=== PATIENT | female | born 1955 | race Caucasian/White ===

== ENCOUNTER 2024-08-01 08:40 | Emergency (ER) | payer MEDICARE, SELFPAY ==
[2024-08-01] VITALS (7 sets, daily range): BP systolic 96–124; BP diastolic 74–84; PULSE 91–134; RESP 14–26; TEMP 36.6–36.7; O2SAT 98–100
--- NOTE | ~2024-08-01 | CT_ITS ---
EXAMINATION: CT chest abdomen pelvis w con DATE: 08/01/2024 10:45 INDICATION: Abnormal chest x-ray with nausea, vomiting and weakness TECHNIQUE: Computed tomography (CT) of the chest, abdomen, and pelvis was performed with 100 mL Omnip aque-350 intravenous contrast. Automated exposure control and iterative reconstruction technique were employed. The dose-length product was 410.53 mGy-cm. COMPARISON: Chest radiograph dated 08/01/2024 FINDINGS: CHEST CT: Mild emphysema. There are few scattered small bilateral calcified pulmonary nodules along with calcif ied mediastinal and bilateral hilar lymph nodes consistent with old granulomatous disease. The larger nodular opacities identified on the prior radiographs correspond to cardiac monitoring leads. No jamil picious noncalcified pulmonary nodules identified. No pneumonia, pulmonary edema, pleural effusion or pneumothorax. Heart size is normal. No pericardial effusion. Mediastinal wires changes likely bullock ry artery bypass grafting. Thoracic aorta is normal in caliber with no dissection. No pathologically enlarged abdominal or pelvic lymphadenopathy. Multinodular goiter with nodules measuring up to 1.1 cm . Moderate thoracic spondylosis. ABDOMEN/PELVIS CT: 2.4 cm hemangioma with characteristic peripheral discontiguous puddling of contrast located in the po sterior dome of the right hepatic lobe. There are clefts along the anterior spleen with smooth curve margins and without associated hematoma. Other developmental or sequela of old trauma or infarct. Ibarra creas and bilateral adrenal glands are normal. Scattered cortical scarring in both kidneys. Moderate amount stool scattered throughout the colon. No dilated bowel to suggest obstruction. The appendix is not visualized. No pericecal inflammatory change to suggest acute appendicitis. Bladder, retroverted uterus and bilateral adnexa are unremarkable. No free intraperitoneal gas or fluid. No pathologicall y enlarged abdominal or pelvic lymphadenopathy. Mild lumbar spondylosis. IMPRESSION: 1. A few small scattered calcified pulmonary nodules along with calcified mediastinal and hilar lymph nodes consistent with old granulomatous disease. No suspicious pulmonary nodule identified. Subtle n odular opacities identified on prior chest radiograph. Related to cardiac monitoring leads. 2. Multinodular goiter. 3. Regions of cortical scarring at both kidneys consistent with sequela of chronic infection or infar ction. Reviewed, dictated and finalized at location A. ETIC ADVISOR IMPRESSION: 1. A few small scattered calcified pulmonary nodules along with calcified media stinal and hilar lymph nodes consistent with old granulomatous disease. No susp icious pulmonary nodule identified. Subtle nodular opacities identified on prio r chest radiograph. Related to cardiac monitoring leads. 2. Multinodular goiter. 3. Regions of cortical scarring at both kidneys consistent with sequela of chronic condition nurse curry infection or infarction.
--- NOTE | ~2024-08-01 | XR_ITS ---
EXAMINATION: XR chest 2V DATE: 08/01/2024 10:10 INDICATION: Nausea and vomiting. Lightheadedness. TECHNIQUE: Frontal and lateral views of the chest were obtained. COMPARISON: None. FINDINGS: There are nodules in the lungs measuring up to 10 mm. No pleural effusion or pneumothorax. The heart size is normal. Median sternotomy wires are noted. IMPRESSION: 1. Pulmonary nodules measuring up to 10 mm suspicious for infection or malignancy. Noncontrast chest CT is recommended. Reviewed, dictated and finalized at location A. 'S ELECTRONIC WARFARE OFFICER IMPRESSION: 1. Pulmonary nodules measuring up to 10 mm suspicious for infection or malignan cy. Noncontrast chest CT is recommended.
--- NOTE | 2024-08-01 09:03 | ECG_ITS ---
Test Date: 2024-08-01 09:11:36 Measurements Intervals [place] Rate: 134 P: 0 MT: 0 QRS: 58 QRSD: 85 T: -60 QT: 319 QTc: 478 Interpretive Statements ATRIAL FIBRILLATION WITH RAPID VENTRICULAR RESPONSE POSSIBLE RIGHT VENTRICULAR CONDUCTION DELAY BORDERLINE ST-T WAVE ABNORMALITY- DIFFUSE LEADS BASELINE ARTIFACT- I, II, III, AVR, AVL ABNORMAL ECG No previous ECG available for comparison Electronically Signed On 08-01-2024 09:37:50 CRACKING UNIT OPERATOR by Ruddy Ponce D.O.
--- NOTE | 2024-08-01 09:13 | ED.WEAKNESS ---
HPI - Weakness General Chief complaint: Weakness Stated complaint: vomiting, lethargic Time Seen by Provider: 08/01/24 09:00 Source: patient and family Mode of arrival: ambulatory Limitations: no limitations History of Present Illness HPI Narrative: Patient is a 69 y/o female who presents to the ED with c/o N/V, lightheadedness. Patient reports she woke up around 1am feeling unwell. Began having N/V. Report of multiple episodes of vomiting. Then became very diaphoretic and lightheaded. Was then brought here by her daughter. Patient does feel slightly lightheaded currently. Denies current nausea. Denies abdominal pain. Denies known sick contacts or bad food exposure. Denies fevers. Denies diarrhea or constipation. Did have a normal bowel movement this morning. Patient was found to be in AFib with RVR upon arrival. 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 Daughter reports history of AFib after surgery. Daughter states patient was on amiodarone at that time. Med list from 2019 shows flecainide. Patient reportedly has not been taking any of her normal medications since 2019 when COVID began. Has not seen her primary or wood cut engraver since then. She is not currently anticoagulated, was previously on xarelto. Patient denies chest pain or shortness of breath. Related Data Allergies Allergy/AdvReac Type Severity Reaction Status Date / Time No Known Allergies Allergy Verified 08/01/24 08:41 Review of Systems Review of Systems: All systems reviewed & are unremarkable except as noted in HPI. All systems reviewed & are unremarkable except as noted in HPI and below [facility] Past Medical History Medical History Paroxysmal A-fib Cardiac myxoma removal [address] [facility] HLD (hyperlipidemia) HTN (hypertension) Exam Narrative: GENERAL: Well appearing, thin, non-toxic, in no acute distress. HEAD: Normocephalic, atraumatic. RESPIRATORY: Airway patent, respirations nonlabored. Clear to auscultation bilaterally, no rales, rhonchi, wheezing. CARDIOVASCULAR: Tachycardic with irregular rhythm without murmurs, rubs, or gallops. Peripheral pulses intact. ABDOMINAL: Soft, no tenderness throughout abdomen, nondistended. Normoactive BS. MUSCULOSKELETAL: Moves all extremities. No gross deformities. No peripheral edema. SKIN: Warm, dry, normal color. NEURO: A&O X3. Speech clear. No ataxic movements. PSYCHIATRIC: Appropriate mood and affect. Normal interaction. Course Vital Signs Vital signs: Vital Signs Temperature 98.1 F 08/01/24 08:44 Pulse Rate 91 08/01/24 08:44 Respiratory Rate 14 08/01/24 08:44 Blood Pressure 96/74 L 08/01/24 08:44 Pulse Oximetry 98 08/01/24 08:44 Oxygen Delivery Room Air 08/01/24 08:44 Temperature 97.9 F 08/01/24 12:39 Pulse Rate 100 08/01/24 13:55 Respiratory Rate 19 08/01/24 13:55 Blood Pressure 124/84 08/01/24 13:55 Pulse Oximetry 99 08/01/24 13:55 Oxygen Delivery Room Air 08/01/24 08:44 MDM - Weakness MDM Narrative Medical decision making narrative: Patient presented to nausea, vomiting, lightheadedness. Patient borderline hypotensive upon arrival. Also found to be in AFib with RVR. EKG confirming this. Reports remote history of AFib and 2011 after cardiac surgery. Is not currently on any medications and has not been for the last 4 years. Will initiate fluids to see how heart rate and blood pressure responds. EKG without concerning ST changes. Patient denies chest pain or shortness breath. Cbc w/ WBC count of 12.0. Likely reactive from vomiting. CMP is unremarkable. Stable electrolytes. Stable kidney function. Lactic acid within normal range at 1.2. Magnesium within normal range. Viral swabs negative. UA w/o signs of infection. Troponin is undetectable. BNP is moderately elevated to 3780, though patient does not appear fluid overloaded. No peripheral edema on exam. Chest x-ray with multiple pulmonary nodules, infection versus malignancy. No pulmonary edema. Recommended CT chest. CT chest/abdomen/pelvis was obtained and without acute findings. Pulmonary nodules present, but no suspicious nodules. Old finding related to kidneys. Urine today does not appear infectious. Patient given 2L fluid in the ED. HR improved down to the low 100s, BP 120s systolic. Has not required any rate controlling agents. 3 hr troponin also undetectable. Overall w/u fairly reassuring. Feel patient is safe for d/c home. Will need to be restarted on medications for AFIB. Discussed case with Taina Toribio NP Cardiology, agrees with plan, feel reasonable to resume low dose metoprolol and be restarted on anticoagulation. Patient to f/u with her wood cut engraver in her home town. Discussed this with patient and daughter. They are in agreement with plan. Will give patient dose of metoprolol now. Rx sent to pharmacy for metoprolol 12.5mg bid, xarelto. HR improved into the 80s-90s after metoprolol. Safe for d/c home. Given strict return precautions. D/C in stable condition. Medical Records Attestation: I reviewed the patient's medical records. Lab Data Attestation: I reviewed the patient's lab results. 08/01/24 09:19 08/01/24 09:19 Labs: Lab Results 08/01/24 08/01/24 08/01/24 Range/Units 09:19 09:47 12:14 WBC 12.0 H (4.5-10.0) K/mm3 RBC 5.05 (4.2-5.4) M/mm3 Hgb 14.9 (12.0-15.0) g/dL Hct 45.8 (37.0-47.0) % MCV 90.7 (80-100) fl MCH 29.5 (26-34) pg MCHC 32.5 (32-36) g/dl RDW 14.7 H (11.5-14.5) % Plt Count 282 (150-375) k/mm3 MPV 11.9 H (7.4-10.4) fl Immature Gran % (Auto) 0.2 (0-0.5) % Neut % (Auto) 91.1 H (45.5-73.1) % Lymph % (Auto) 4.8 L (18.3-44.2) % [place] % (Auto) 3.5 (2.6-8.5) % Eos % (Auto) 0.2 (0-4.4) % Baso % (Auto) 0.2 (0.2-1.2) % Lymph # (Auto) 0.58 L (0.9-3.2) K/mm3 [place] # (Auto) 0.4 (0.1-0.6) K/mm3 Eos # (Auto) 0.0 (0-0.3) K/mm3 Baso # (Auto) 0.0 (0.0-0.1) K/mm3 Abs Immat Gran (auto) 0.03 (0.00-0.031) K/mm3 Absolute Neuts (auto) 10.9 H (1.3-6.7) K/mm3 Absolute Nucleated RBC 0.000 (0.0-0.012) K/mm3 Total Counted 100 Neutrophils % (Manual) 92 H (46-73) % Lymphocytes % (Manual) 5 L (18-44) % Monocytes % (Manual) 3 (3-9) % Nucleated RBC % 0.0 (0.0-0.2) % Abs Lymphs (Manual) 0.60 L (1.1-4.5) K/mm3 Abs Monocytes (Manual) 0.36 (0.1-0.90) K/mm3 Platelet Estimate Adequate (Adequate) Anisocytosis 1+ Schistocytes None seen PT 14.6 (11.1-14.7) Seconds INR 1.1 APTT 24.0 (22.3-36.8) Seconds Sodium 136 L (137-145) mmol/L Potassium 3.4 (3.4-5.0) mmol/L Chloride 98 (98-107) mmol/L Carbon Dioxide 26 (22-30) mmol/L Anion Gap 12 (4-12) mmol/L BUN 16 (7-17) mg/dL Creatinine 0.96 (0.7-1.0) mg/dL Estim Creat Clear Calc 44 ml/min Estimated GFR 58 L (59 - ) Glucose 160 H (65-110) mg/dL Lactic Acid 1.2 (0.7-2.0) mmol/L Calcium 9.1 (8.4-10.2) mg/dL Magnesium 2.1 (1.6-2.3) mg/dL Total Bilirubin 1.0 (0.2-1.3) mg/dL AST 19 (14-36) U/L ALT 14 (6-35) U/L Alkaline Phosphatase 74 (38-126) U/L Troponin I < 0.012 < 0.012 (0.000-0.034) ng/mL NT-Pro-B Natriuret Pep 3780 H (19.9-100) pg/mL Total Protein 8.0 (6.3-8.2) g/dL Albumin 4.4 (3.5-5.1) g/dL Lipase 43 (23-300) U/L Urine Color Dark yellow (Yellow) Urine Appearance Cloudy H (Clear) Urine pH 5.5 (5.0-9.0) Ur Specific [place] 1.028 (1.001-1.035) Urine Protein 1+ H (Negative) mg/dL Urine Glucose (UA) Negative (Negative) mg/dL Urine Ketones Trace H (Negative) mg/dL Ur Blood (Man) Negative (Negative) Urine Nitrate Negative (Negative) Urine Bilirubin Negative (Negative) Urine Urobilinogen 1.0 (<2.0) mg/dL Add Ur Microanalysis Reviewed Leukocyte Esterase Rfl Negative (Negative) HOLLIE/UL Urine RBC 3-5 H (0-2) /hpf Urine WBC 0-5 (0-3) /hpf Ur Squamous Epith Cells Occasional (Few) /hpf Urine Bacteria None seen /hpf Urine Casts 6-10 Hyaline Casts Present (None) /lpf Influenza A (RT-PCR) Negative (Negative) Influenza B (RT-PCR) Negative (Negative) RSV (RT-PCR) Negative (Negative) SARS-CoV-2 RNA (RT-PCR) Negative (Negative) Imaging Data Attestation: I personally reviewed and interpreted this imaging study as follows: Radiologist's impression: ITS Impressions Chest X-Ray 08/01/24 10:10 IMPRESSION: 1. Pulmonary nodules measuring up to 10 mm suspicious for infection or malignancy. Noncontrast chest CT is recommended. Chest/Abdomen/Pelvis CT 08/01/24 10:48 IMPRESSION: 1. A few small scattered calcified pulmonary nodules along with calcified mediastinal and hilar lymph nodes consistent with old granulomatous disease. No suspicious pulmonary nodule identified. Subtle nodular opacities identified on prior chest radiograph. Related to cardiac monitoring leads. 2. Multinodular goiter. 3. Regions of cortical scarring at both kidneys consistent with sequela of chronic infection or infarction. ECG Data EKG #1: Attestation: I personally reviewed and interpreted this ECG as follows: ECG completion date: 08/01/24 ECG completion time: 09:11 EKG Interpretation: tachycardia (134), atrial fibrillation (rvr) and non-specific ST changes Discharge Plan Discharge Clinical Impression: Atrial fibrillation with rapid ventricular response, Noncompliance with medication regimen Nausea and vomiting Qualifiers: Vomiting type: unspecified Qualified Code(s): R11.2 - Nausea with vomiting, unspecified Patient Disposition: Home, Self-Care Condition: Stable Instructions: Antibiotic Form, A-fib (Atrial Fibrillation) (ED), Acute Nausea and Vomiting (ED) Additional Instructions: Resume taking metoprolol 12.5 mg twice daily as prescribed. Take Xarelto 20 mg at night daily. It is important you take these medications as prescribed. Recommend monitoring blood pressure at home and keeping recording of the numbers. Do not take your metoprolol dose if your blood pressure is less than 100 systolic (top number) or heart rate is less than 50. Follow-up closely with your primary care doctor and wood cut engraver for further evaluation. Call offices to make appointments. Utilize Zofran as needed for further nausea. Stay well hydrated. Recommend electrolyte rich fluids, Gatorade, Pedialyte, body armor. Return to the ED if you experience worsening or severe symptoms, unable to keep down food or drink, severe pain, chest pain, difficulty breathing, persistently low blood pressures, persistently elevated heart rate, pain or swelling in legs, or any other symptoms of concern. Patient Language: Mongolian Prescriptions: New metoprolol tartrate 25 mg tablet 12.5 mg PO BID Qty: 60 0RF ondansetron 4 mg tablet,disintegrating 4 mg PO Q8H PRN (Reason: nausea and vomiting) Qty: 15 0RF Xarelto 20 mg tablet 20 mg PO QPM Qty: 60 0RF Rx Instructions: must administer with evening meal Follow-up/Referrals: UNKNOWN,DOCTOR [Primary Care Provider] - Time of Disposition: 13:12
[2024-08-01 09:30] LABS: Basophils Percent Auto 0.2 % (0.2-1.2); Eosinophils Percent Auto 0.2 % (0-4.4); Hematocrit 45.8 % (37.0-47.0); Hemoglobin 14.9 g/dL (12.0-15.0); Immature Granulocyte Absolute 0.03 K/mm3 (0.00-0.031); Immature Granulocyte Percent A 0.2 % (0-0.5); Lymphocytes Absolute Auto 0.58 K/mm3 (0.9-3.2); Lymphocytes Percent Auto 4.8 % (18.3-44.2); Mean Corpuscular HGB Conc 32.5 g/dl (32-36); Mean Corpuscular Hemoglobin 29.5 pg (26-34); Mean Corpuscular Volume 90.7 fl (80-100); Mean Platelet Volume 11.9 fl (7.4-10.4); Monocytes Absolute Auto 0.4 K/mm3 (0.1-0.6); Monocytes Percent Auto 3.5 % (2.6-8.5); Neutrophils Absolute Auto 10.9 K/mm3 (1.3-6.7); Neutrophils Percent Auto 91.1 % (45.5-73.1); Platelet Count Result 282 k/mm3 (150-375); Red Blood Count 5.05 M/mm3 (4.2-5.4); Red Cell Distribution Width 14.7 % (11.5-14.5)
[2024-08-01 09:39] LABS: Lactic Acid Reflex 1.2 mmol/L (0.7-2.0)
[2024-08-01 09:40] LABS: Alanine Aminotransferase 14 U/L (6-35); Albumin Level 4.4 g/dL (3.5-5.1); Alkaline Phosphatase 74 U/L (38-126); Anion Gap 12 mmol/L (4-12); Aspartate Amino Transferase 19 U/L (14-36); Blood Urea Nitrogen 16 mg/dL (7-17); Calcium 9.1 mg/dL (8.4-10.2); Carbon Dioxide 26 mmol/L (22-30); Chloride 98 mmol/L (98-107); Estimated CRCL calculation 44 ml/min; Estimated Glomerular Filt Rate 58; Glucose 160 mg/dL (65-110); Lipase 43 U/L (23-300); Magnesium 2.1 mg/dL (1.6-2.3); Potassium 3.4 mmol/L (3.4-5.0); Sodium 136 mmol/L (137-145)
[2024-08-01 09:41] LABS: INR 1.1; Prothrombin Time 14.6 Seconds (11.1-14.7)
[2024-08-01] MEDS: SODIUM CHLORIDE 0.9% IV 1,000 ML 999 ML IV CONT (09:44)
[2024-08-01] MEDS: SODIUM CHLORIDE 0.9% IV 500 ML 999 ML IV CONT (09:45)
[2024-08-01 09:52] LABS: NT Pro B Type Natriuretic Pept 3780 pg/mL (19.9-100); Troponin I < 0.012 ng/mL (0.000-0.034)
[2024-08-01 09:58] LABS: Platelet Estimate Adequate (Adequate)
[2024-08-01 09:59] LABS: Anisocytosis 1+
[2024-08-01 10:01] LABS: Schistocytes None Seen
[2024-08-01 10:07] LABS: Influenza A QL RT-PCR Negative (Negative); Influenza B QL RT-PCR Negative (Negative); RSV RNA, RT-PCR Negative (Negative); SARS-CoV-2 RNA PCR Negative (Negative)
[2024-08-01 10:19] LABS: Add Urine Microscopic? YES; Appearance Urine Cloudy (Clear); Bacteria Urine None Seen /hpf; Bilirubin Urine Negative (Negative); Blood Urine Negative (Negative); Color Urine Dark Yellow (Yellow); Glucose Urine UA Negative (Negative); Hyaline Casts Urine Present /lpf; Ketones Urine Trace mg/dL (Negative); Leukocyte Esterase Ur Negative LEU/UL (Negative); Need Manual Microscopic Reviewed; Nitrate Urine Negative (Negative); Protein Urine 1+ mg/dL (Negative); Specific Grav Ur 1.028 (1.001-1.035); Squamous Epithelial Cell Urine Occasional /hpf (Few); WBC Urine 0-5 /hpf (0-3); pH Urine 5.5 (5.0-9.0)
[2024-08-01 10:22] LABS: Total Cells Counted 100
[2024-08-01 10:23] LABS: Lymphocytes Percent Manual 5 % (18-44); Monocytes Absolute Manual 0.36 K/mm3 (0.1-0.90); Monocytes Percent Manual 3 % (3-9); Neutrophils Percent Manual 92 % (46-73)
--- OUTSIDE RECORDS SUMMARY | 2024-08-01 11:49 | XMS_ITS | Patient Health Summary ---
Author Organization [facility] Address [address] [place] [address] Care Team Providers Care Skirt Clipper Name Role Phone Luca Oliveira Primary Care Provider [phone] [facility],non-owned Affiliates and Associated Physician Practices is amultiple site organization consisting of ambulatory clinics and hospital sitesin [place], [place], [place] and [place]. This disclosure is being madepursuant to the Care Everywhere program and may not contain all information available regarding this patient. Last updated 18.[facility] [employer] Allergies * Andriy Inhibitors(Cough) * Adhesive Sensitivity(Rash) -Low Criticality * Silver(Rash) -Medium Criticality Medications * Be aware that medications may not be up to date on this document. Alwaysverify current medications with the patient. * multivitamin daily (THERAGRAN) tablet Take 1 Tab by mouth daily with food. * omeprazole (PRILOSEC) 20 MG capsule Take 20 mg by mouth daily before breakfast. * metoprolol tartrate IR (LOPRESSOR) 25 MG tablet(Started 08/14/2010) Take 1 Tab by mouth 2 times daily. 1 refill left * rivaroxaban (XARELTO) 20 MG tablet(Started 02/16/2018) Take 20 mg by mouth once daily * losartan (COZAAR) 50 MG tablet(Started 02/16/2018) Take 50 mg by mouth once daily * EPINEPHrine (EPIPEN) 0.3 MG/0.3ML auto-injector pen(Started 11/29/2015) Inject 0.3 mg into muscle * cetirizine (ZYRTEC ALLERGY) 10 MG gel capsule Take 1 capsule by mouth * Calcium Carbonate-Vitamin D3 600-400 MG-UNIT Take 1 tablet by mouth once daily * atorvastatin (LIPITOR) 20 MG tablet(Started 12/01/2017) Take 20 mg by mouth once daily * amLODIPine (NORVASC) 2.5 MG tablet(Started 12/01/2017) Take 2.5 mg by mouth once daily Active Problems Problem Noted Date Diagnosed Date Left foot pain 08/19/2018 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 Tobacco use 11/25/2017 Gastroesophageal reflux disease without esophagi tis 12/18/2016 History of colon polyps 10/07/2016 Nasal obstruction 06/24/2016 Non-seasonal allergic rhinitis due to pollen AKBAR (obstructive sleep apnea) 10/30/2015 History of cervical dysplasia 01/08/2015 Dyslipidemia 02/22/2014 Atrial myxoma 12/13/2012 Family history of ischemic heart disease 013 PAF (paroxysmal atrial fibrillation) 12/13/2012 Essential hypertension 11/25/2012 Palpitation 11/25/2012 Immunizations * INFLUENZA VACCINE(Given 04/13/2015) * PNEUMOCOCCAL PPSV23(Given 06/15/2001) Social History Tobacco Use Types Packs/Day Years Used Date Smoking Tobacco: Every Day Cigarettes 0.5 28 Smokeless Tobacco: Never Tobacco Cessation:Ready to Q uit: No; Counseling Given: Yes Alcohol Use Standard Drinks/Week Comments No 0 (1 standard drink = 0.6 oz pur e alcohol) Sex and Gender Information Value Date Recorded Sex Assigned at Not on file Gender Identity Not on file Sexual Orientation Not on file Last Filed Vital Signs Vital Sign Reading Time Taken Comments Blood Pressure 118/94 08/15/2010 7:18 AM FRAME AND SCRAP CRUSHER Pulse 59 10/28/2018 11:54 AM CDT Temperature 36.9 C (98.5 F) 08/15/2010 7:18 AM FRAME AND SCRAP CRUSHER Respiratory Rate 18 08/15/2010 7:18 AM FRAME AND SCRAP CRUSHER Oxygen Saturation 98% 10/28/2018 11:54 AM CDT Inhaled Oxygen Concentration 100% 08/08/2010 4 :00 AM FR[employer] AND SCR[employer] CRUSHER Weight 69.9 kg (154 lb) 10/28/2018 11:54 AM CDT Height 162.6 cm (5' 4 ) 10/28/2018 11:54 AM CDT Body Mass Index 26.43 10/28/2018 11:54 AM CDT Procedures * LAB RESULTS ORDER(Performed 08/23/2010) * CARDIAC RHYTHM STRIP ORDER(Performed 08/20/2010) * APHERESIS/TRANSFUSION ORDER(Performed 08/17/2010) * LAB RESULTS ORDER(Performed 08/17/2010) * IMAGING/RADIOLOGY/XRAY RESULTS ORDER(Performed 08/17/2010) * CARDIAC ECHOCARDIOGRAM COMPLETE ORDER(Performed 08/17/2010) * CARDIAC EKG ORDER(Performed 08/17/2010) * GLUCOSE - POINT OF CARE(Performed 08/15/2010) * XR CHEST 2VW(Performed 08/15/2010) Performed for Pulmonary congestion * CBC W/O DIFFERENTIAL(Performed 08/15/2010) * PT-INR(Performed 08/15/2010) * GLUCOSE - POINT OF CARE(Performed 08/14/2010) * GLUCOSE - POINT OF CARE(Performed 08/14/2010) * GLUCOSE - POINT OF CARE(Performed 08/14/2010) * GLUCOSE - POINT OF CARE(Performed 08/14/2010) * BASIC METABOLIC PANEL (CALCIUM TOTAL)(Performed 08/14/2010) * PT-INR(Performed 08/14/2010) * GLUCOSE - POINT OF CARE(Performed 08/13/2010) * GLUCOSE - POINT OF CARE(Performed 08/13/2010) * GLUCOSE - POINT OF CARE(Performed 08/13/2010) * GLUCOSE - POINT OF CARE(Performed 08/13/2010) * BASIC METABOLIC PANEL (CALCIUM TOTAL)(Performed 08/13/2010) * PT-INR(Performed 08/13/2010) * GLUCOSE - POINT OF CARE(Performed 08/12/2010) * GLUCOSE - POINT OF CARE(Performed 08/12/2010) * TSH(Performed 08/12/2010) * PT-INR(Performed 08/12/2010) * GLUCOSE - POINT OF CARE(Performed 08/12/2010) * XR CHEST 1VW PORTABLE(Performed 08/12/2010) Performed for Atrial myxoma (HCC) * DIFFERENTIAL MANUAL(Performed 08/12/2010) * BASIC METABOLIC PANEL (CALCIUM TOTAL)(Performed 08/12/2010) * CBC W AUTO DIFFERENTIAL(Performed 08/12/2010) * CULTURE MRSA(Performed 08/12/2010) * URINALYSIS REFLEX MICROSCOPIC REFLEX CULTURE(Performed 08/11/2010) * GLUCOSE - POINT OF CARE(Performed 08/11/2010) * XR CHEST 1VW PORTABLE(Performed 08/11/2010) Performed for Atrial myxoma (HCC) * GLUCOSE - POINT OF CARE(Performed 08/11/2010) * GLUCOSE - POINT OF CARE(Performed 08/11/2010) * MAGNESIUM BLOOD(Performed 08/11/2010) * BASIC METABOLIC PANEL (CALCIUM TOTAL)(Performed 08/11/2010) * HEPATIC FUNCTION PANEL(Performed 08/11/2010) * CBC W/O DIFFERENTIAL(Performed 08/11/2010) * GLUCOSE - POINT OF CARE(Performed 08/10/2010) * GLUCOSE - POINT OF CARE(Performed 08/10/2010) * XR CHEST 1VW PORTABLE(Performed 08/10/2010) Performed for Pulmonary congestion * GLUCOSE - POINT OF CARE(Performed 08/10/2010) * GLUCOSE - POINT OF CARE(Performed 08/10/2010) * COMPREHENSIVE METABOLIC PANEL(Performed 08/10/2010) * CBC W/O DIFFERENTIAL(Performed 08/10/2010) * GLUCOSE - POINT OF CARE(Performed 08/09/2010) * GLUCOSE - POINT OF CARE(Performed 08/09/2010) * GLUCOSE - POINT OF CARE(Performed 08/09/2010) * GLUCOSE - POINT OF CARE(Performed 08/09/2010) * XR CHEST 1VW PORTABLE(Performed 08/09/2010) Performed for Pulmonary congestion * GLUCOSE - POINT OF CARE(Performed 08/09/2010) * MAGNESIUM BLOOD(Performed 08/09/2010) * PT-INR(Performed 08/09/2010) * BASIC METABOLIC PANEL (CALCIUM TOTAL)(Performed 08/09/2010) * CBC W AUTO DIFFERENTIAL(Performed 08/09/2010) * GLUCOSE - POINT OF CARE(Performed 08/09/2010) * GLUCOSE - POINT OF CARE(Performed 08/08/2010) * GLUCOSE - POINT OF CARE(Performed 08/08/2010) * GLUCOSE - POINT OF CARE(Performed 08/08/2010) * GLUCOSE - POINT OF CARE(Performed 08/08/2010) * GLUCOSE - POINT OF CARE(Performed 08/08/2010) * GLUCOSE - POINT OF CARE(Performed 08/08/2010) * ECHOCARDIOGRAM 2D WITH DOPPLER(Performed 08/08/2010) Performed for Atrial myxoma (HCC), Benign neoplasm of heart (HCC), Pulmonary congestion * GLUCOSE - POINT OF CARE(Performed 08/08/2010) * GLUCOSE - POINT OF CARE(Performed 08/08/2010) * XR CHEST 1VW PORTABLE(Performed 08/08/2010) Performed for Pulmonary congestion * BLOOD GASES ARTERIAL(Performed 08/08/2010) * PLATELET COUNT AUTO(Performed 08/08/2010) * FIBRINOGEN ACTIVITY(Performed 08/08/2010) * PTT(Performed 08/08/2010) * PT-INR(Performed 08/08/2010) * CBC W/O DIFFERENTIAL(Performed 08/08/2010) * BASIC METABOLIC PANEL (CALCIUM TOTAL)(Performed 08/08/2010) * CALCIUM IONIZED BLOOD(Performed 08/08/2010) * MAGNESIUM BLOOD(Performed 08/08/2010) * GLUCOSE - POINT OF CARE(Performed 08/08/2010) * GLUCOSE - POINT OF CARE(Performed 08/07/2010) * GLUCOSE - POINT OF CARE(Performed 08/07/2010) * GLUCOSE - POINT OF CARE(Performed 08/07/2010) * GLUCOSE - POINT OF CARE(Performed 08/07/2010) * GLUCOSE - POINT OF CARE(Performed 08/07/2010) * GLUCOSE - POINT OF CARE(Performed 08/07/2010) * COAGULATION PANEL W D-DIMER(Performed 08/07/2010) * HEPARIN PLATELET INDUCED ANTIBODY(Performed 08/07/2010) * MAGNESIUM BLOOD(Performed 08/07/2010) * POTASSIUM BLOOD(Performed 08/07/2010) * HGB HCT PANEL(Performed 08/07/2010) * GLUCOSE - POINT OF CARE(Performed 08/07/2010) * GLUCOSE - POINT OF CARE(Performed 08/07/2010) * XR CHEST 1VW PORTABLE(Performed 08/07/2010) Performed for Pulmonary congestion * GLUCOSE - POINT OF CARE(Performed 08/07/2010) * FFP X2(Performed 08/07/2010) * CRYOPRECIPITATE X10(Performed 08/07/2010) * TRANSFUSE FRESH FROZEN PLASMA(Performed 08/07/2010) * GLUCOSE - POINT OF CARE(Performed 08/07/2010) * TRANSFUSE CRYOPRECIPITATE(Performed 08/07/2010) * GLUCOSE - POINT OF CARE(Performed 08/07/2010) * GLUCOSE - POINT OF CARE(Performed 08/07/2010) * GLUCOSE - POINT OF CARE(Performed 08/07/2010) * D-DIMER(Performed 08/07/2010) * FIBRINOGEN ACTIVITY(Performed 08/07/2010) * TYPE SCRN XMATCH RBC X2(Performed 08/07/2010) * TRANSFUSE RED BLOOD CELLS(Performed 08/07/2010) * PT PTT PANEL(Performed 08/07/2010) * CBC W/O DIFFERENTIAL(Performed 08/07/2010) * BASIC METABOLIC PANEL (CALCIUM TOTAL)(Performed 08/07/2010) * MAGNESIUM BLOOD(Performed 08/07/2010) * GLUCOSE - POINT OF CARE(Performed 08/07/2010) * GLUCOSE - POINT OF CARE(Performed 08/07/2010) * GLUCOSE - POINT OF CARE(Performed 08/07/2010) * GLUCOSE - POINT OF CARE(Performed 08/07/2010) * EKG 12-LEAD(Performed 08/07/2010) Performed for Atrial myxoma (HCC) * GLUCOSE - POINT OF CARE(Performed 08/06/2010) * GLUCOSE - POINT OF CARE(Performed 08/06/2010) * GLUCOSE - POINT OF CARE(Performed 08/06/2010) * HGB HCT PANEL(Performed 08/06/2010) * MAGNESIUM BLOOD(Performed 08/06/2010) * POTASSIUM BLOOD(Performed 08/06/2010) * GLUCOSE - POINT OF CARE(Performed 08/06/2010) * GLUCOSE - POINT OF CARE(Performed 08/06/2010) * TYPE SCRN XMATCH RBC X1(Performed 08/06/2010) * TRANSFUSE RED BLOOD CELLS(Performed 08/06/2010) * GLUCOSE - POINT OF CARE(Performed 08/06/2010) * TRANSFUSE RED BLOOD CELLS(Performed 08/06/2010) * TRANSFUSE CRYOPRECIPITATE(Performed 08/06/2010) * GLUCOSE - POINT OF CARE(Performed 08/06/2010) * MAGNESIUM BLOOD(Performed 08/06/2010) * PLATELET COUNT AUTO(Performed 08/06/2010) * PT PTT PANEL(Performed 08/06/2010) * HGB HCT PANEL(Performed 08/06/2010) * CRYOPRECIPITATE X10(Performed 08/06/2010) * GLUCOSE - POINT OF CARE(Performed 08/06/2010) * FFP X1(Performed 08/06/2010) * TRANSFUSE FRESH FROZEN PLASMA(Performed 08/06/2010) * FFP X1(Performed 08/06/2010) * TRANSFUSE FRESH FROZEN PLASMA(Performed 08/06/2010) * XR CHEST 1VW PORTABLE(Performed 08/06/2010) Performed for Atrial myxoma (HCC) * CALCIUM IONIZED BLOOD(Performed 08/06/2010) * POTASSIUM BLOOD(Performed 08/06/2010) * PLATELET COUNT AUTO(Performed 08/06/2010) * HGB HCT PANEL(Performed 08/06/2010) * MAGNESIUM BLOOD(Performed 08/06/2010) * PT PTT PANEL(Performed 08/06/2010) * GLUCOSE - POINT OF CARE(Performed 08/06/2010) * BLOOD GASES ARTERIAL(Performed 08/06/2010) * XR CHEST 1VW PORTABLE(Performed 08/06/2010) Performed for Atrial myxoma (HCC) * TYPE SCRN XMATCH RBC X2(Performed 08/06/2010) * TRANSFUSE RED BLOOD CELLS(Performed 08/06/2010) * GLUCOSE - POINT OF CARE(Performed 08/06/2010) * BLOOD GASES ARTERIAL(Performed 08/06/2010) * COAGULATION PANEL W D-DIMER(Performed 08/06/2010) * CALCIUM IONIZED BLOOD(Performed 08/06/2010) * POTASSIUM BLOOD(Performed 08/06/2010) * PLATELET COUNT AUTO(Performed 08/06/2010) * HGB HCT PANEL(Performed 08/06/2010) * MAGNESIUM BLOOD(Performed 08/06/2010) * CULTURE MSSA(Performed 08/06/2010) * CULTURE MRSA(Performed 08/06/2010) * GROSS + MICRO EXAM(Performed 08/06/2010) * GROSS + MICRO EXAM(Performed 08/06/2010) * URINALYSIS REFLEX MICROSCOPIC REFLEX CULTURE(Performed 08/06/2010) * GLUCOSE - POINT OF CARE(Performed 08/06/2010) * CARDIAC EKG ORDER(Performed 07/29/2010) * TYPE + SCREEN PANEL(Performed 07/24/2010) Performed for Unspecified pre-operative examination * TSH(Performed 07/24/2010) Performed for Unspecified pre-operative examination * HEMOGLOBIN A1C(Performed 07/24/2010) Performed for Unspecified pre-operative examination * URINALYSIS REFLEX TO MICROSCOPIC NO CULTURE(Performed 07/24/2010) Performed for Unspecified pre-operative examination * COMPREHENSIVE METABOLIC PANEL(Performed 07/24/2010) Performed for Unspecified pre-operative examination * CBC W AUTO DIFFERENTIAL(Performed 07/24/2010) Performed for Unspecified pre-operative examination * XR CHEST 2VW(Performed 07/24/2010) Performed for Unspecified pre-operative examination * EKG 12-LEAD(Performed 07/24/2010) Performed for Unspecified pre-operative examination * LAB RESULTS ORDER(Performed 07/23/2010) * CARDIAC ECHOCARDIOGRAM COMPLETE ORDER(Performed 07/23/2010) * CARDIAC PROCEDURE ORDER(Performed 07/23/2010) * CARDIAC EKG ORDER(Performed 07/23/2010) * IMAGING/RADIOLOGY/XRAY RESULTS ORDER(Performed 07/23/2010) * CARDIAC CATH ORDER(Performed 07/22/2010) Results * LAB RESULTS ORDER (08/23/2010) Only the most recent of3 resultswithin the time period is included. Provider Unknown LAB - THERAPEUTIC DR UG MONITORING ORDERABLES * CARDIAC RHYTHM STRIP ORDER (08/20/2010 1:43 PM FRAME AND SCR[employer] CRUSHER) Narrative Procedure Note Document, Scanned - 08/08/2010 2:47 PM [employer] Transcriptions Document, Scanned - 08/09/2010 4:48 PM [employer] S[employer] CRUSHER Document, Scanned - 08/13/2010 11:43 AM FR[employer] AND SCRAP CRUSHER Document, Scanned - 08/14/2010 4:25 PM [employer] S[employer] CRUSHER Document, Scanned - 08/16/2010 3:10 PM [employer] S[employer] CRUSHER Document, Scanned - 08/19/2010 2:22 PM [employer] SCR[employer] CRUSHER Scanned Document CARDIAC SERVICES ORD ERABLES * APHERESIS/TRANSFUSION ORDER (08/17/2010 3:20 PM FR[employer] AND SCR[employer] CRUSHER) Narrative Procedure Note Document, Scanned - 08/08/2010 6:17 PM [employer] CRUSHER Transcriptions Document, Scanned - 08/16/2010 3:10 PM [employer] S[employer] CRUSHER Scanned Document NURSING - VITAL SIGN S AND ASSESSMENT * IMAGING/RADIOLOGY/XRAY RESULTS ORDER (08/17/2010 3:20 PM FR[employer] S[employer] CRUSHER) Only the most recent of2 resultswithin the time period is included. Anatomical Region Laterality Modality Other Narrative Procedure Note Document, Scanned - 08/16/2010 3:10 PM [employer] Transcriptions Document, Scanned - 08/16/2010 3:10 PM [employer] CRUSHER Scanned Document IMAGING * CARDIAC ECHOCARDIOGRAM COMPLETE ORDER (08/17/2010 3:20 PM FR[employer] SCRAP CRUSHER) Only the most recent of2 resultswithin the time period is included. Narrative Procedure Note Document, Scanned - 08/16/2010 3:10 PM [employer] CRUSHER Transcriptions Document, Scanned - 08/16/2010 3:10 PM [employer] S[employer] CRUSHER Scanned Document ECHO ORDERABLES * CARDIAC EKG ORDER (08/17/2010 3:20 PM FR[employer] AND SCR[employer] CRUSHER) Only the most recent of3 resultswithin the time period is included. Narrative Procedure Note Document, Scanned - 08/16/2010 3:10 PM [employer] S[employer] CRUSHER Scanned Document CARDIAC SERVICES ORD ERABLES * GLUCOSE - POINT OF CARE (08/15/2010 7:22 AM FR[employer] AND SCR[employer] CRUSHER) Only the most recent of62 resultswithin the time period is included. Glucose WB/POC 108 mg/dl [facility] Comment POCT Per Protocol. [facility] BLOOD SPECIMEN / Unknown 08/15/2010 7:22 AM FR[employer] AND SCR[employer] CRUSHER 08/16/2010 1:03 AM [employer] AND S[employer] CR[facility]HER Nasima Joe MD LAB - POINT OF CARE ORDERABLES [facility] [address] [place] [id number] * XR CHEST PA/LATERAL (08/15/2010 7:04 AM FR[employer] SCR[employer] CRUSHER) Only the most recent of2 resultswithin the time period is included. Anatomical Region Laterality Modality Chest Radiographic Melia ging 08/15/2010 7:11 AM [employer] AND S[employer] CR[employer]HER Impressions 08/15/2010 7:11 AM [employer] Cardiomegaly and small bilateral effusions. Narrative 08/15/2010 7:11 AM FR[employer] AND SCR[employer] CRUSHER INDICATION: Short of breath Two views of the chest are provided. There is cardiomegaly. There are small bilateral effusions. Aorta is tortuous. Procedure Note Alicia Adkins MD - 08/15/2010 INDICATION: Short of breath Two views of the chest are provided. There is cardiomegaly. There are small bilateral effusions. Aorta is tortuous. IMPRESSION Cardiomegaly and small bilateral effusions. Litzy Dubose DIE FORGER-SYSTEM TECHNOLOGIST DIAGNOSTIC MELIA GING ORDERABLES * (ABNORMAL) PT-INR (08/15/2010 4:45 AM FR[employer] SCR[employer] CRUSHER) Only the most recent of6 resultswithin the time period is included. PT 14.8(H) 9.3 - 11.4 seconds [facility] INR 1.44(H) SEE BELOW [facility] Comment: 0.92-1.12 Normal 2.0-3.0 Therapeutic Low Risk 2.5-3.5 Therapeutic High Risk BLOOD SPECIMEN / Unknown 08/15/2010 4:45 AM FR[employer] AND SCR[employer] CRUSHER 08/15/2010 4:54 AM FR[employer] SCR[employer] CRUSHER Litzy Dubose [facility] - COAGULAT ION ORDERABLES Performing Organization Address City/[facility]/ZIP Co de Phone Number [facility] [address] [address] * (ABNORMAL) CBC W/O DIFFERENTIAL (08/15/2010 4:45 AM FR[employer] AND SCRAP CRUSHER) Only the most recent of5 resultswithin the time period is included. WBC 19.42(H) 4.0 - 11.0 X(10)3/L [facility] RBC 3.04(L) 3.8 - 5.3 X(10)6 [facility] Hemoglobin 9.0(L) 12.0 - 16.0 gm/dl [facility] Hematocrit 27.2(L) 36 - 47 % [facility] MCV 89.5(DE) 80.0 - 99.0 fl [facility] MCH 29.6 26 - 34 pg [facility] MCHC 33.1 32.0 - 37.0 gm/dl [facility] RDW 16.5(H) 11.5 - 14.5 % [facility] Platelet Count 507(DH) 150 - 400 K/CUMM [facility] MPV 10.9 9.2 - 12.2 fl [facility] Comment Manual Diff Manual Diff Not Indicated [facility] BLOOD SPECIMEN / Unknown 08/15/2010 4:45 AM FR[employer] AND SCRAP CRUSHER 08/15/2010 4:54 AM FR[employer] SCR[employer] CRUSHER Litzy Dubose [facility] - HEMATOLO GY ORDERABLES [facility] [address] [place] [id number] * (ABNORMAL) BASIC METABOLIC PANEL (CALCIUM TOTAL) (08/14/2010 4:05 AM FR[employer] AND SCR[employer] CRUSHER) Only the most recent of7 resultswithin the time period is included. Glucose 98(DE) 65 - 105 mg/dl [facility] BUN 12 7 - 17 mg/dl [facility] Creatinine 0.48(L) 0.52 - 1.04 mg/dl [facility] Sodium 135(L) 137 - 145 mmol/L [facility] Potassium 4.0 3.6 - 5.0 mmol/L [facility] Chloride 100 98 - 107 mmol/L [facility] CO2 28 22 - 30 mmol/L [facility] Calcium 8.5 8.4 - 10.2 mg/dl [facility] eGFR By MDRD >60 >60 [facility] BLOOD SPECIMEN / Unknown 08/14/2010 4:05 AM FR[employer] AND SCR[employer] CRUSHER 08/14/2010 4:17 AM FR[employer] AND SCR[employer] CRUSHER Maryan Blake MD LAB - CHEMISTRY TOMMY ABRAHAM Performing Organization Address City/[facility]/ZIP Co de Phone Number [facility] [address] [place] [address] * TSH (08/12/2010 8:05 AM FRAME AND SCRAP CRUSHER) Only the most recent of2 resultswithin the time period is included. TSH 3.523 0.55 - 4.78 uIU/ml [facility] BLOOD SPECIMEN / Unknown 08/12/2010 8:05 AM FR[employer] AND SCRAP CRUSHER 08/12/2010 8:10 AM FR[employer] AND SCRAP CRUSHER Narrative Resulting Agency Comment Performed By [address] [address] Litzy Dubose DIE FORGER-SYSTEM TECHNOLOGIST LAB - CHEMISTR Y ORDERABLES [facility] [address] [place] [address] * XR CHEST 1VW PORTABLE (08/12/2010 5:24 AM FR[employer] AND SCRAP CRUSHER) Only the most recent of8 resultswithin the time period is included. Anatomical Region Laterality Modality Chest Radiographic Melia ging 08/12/2010 8:40 AM FR[employer] AND SCR[employer] CRUSHER Impressions 08/12/2010 10:00 AM FR[employer] AND SCR[employer] CRUSHER The lungs are improved, with a decrease in the extent and radiographic density of the infiltrates since August 10. A residual pleural effusion or pleural thickening can be seen on the left partly obscuring the diaphragm. A 2.7 cm pneumothorax persists at the right lung apex. No measurable pneumothorax can be appreciated at the left lung apex on this portable film. Narrative 08/12/2010 10:00 AM FR[employer] AND SCRAP CRUSHER EXAMINATION: One view portable chest. INDICATION: Chest pain. Atrial myxoma. COMPARISON: August 11 and August 10, 2010. FINDINGS: A single portable film of the chest shows further improvement with a decrease in the extent and radiographic density of the diffuse infiltrates in the lungs since the film on August 10, 2010. The left pleural effusion and/or pleural thickening persists. A small area of hypoventilation is noted in the right lower lobe. The right apical pneumothorax now measures approximately 27 mm in width. No measurable pneumothorax can be seen at the left lung apex. The heart size is stable. Procedure Note Elkin Bernstein MD - 08/12/2010 EXAMINATION: One view portable chest. INDICATION: Chest pain. Atrial myxoma. COMPARISON: August 11 and August 10, 2010. FINDINGS: A single portable film of the chest shows further improvement with a decrease in the extent and radiographic density of the diffuse infiltrates in the lungs since the film on August 10, 2010. The left pleural effusion and/or pleural thickening persists. A small area of hypoventilation is noted in the right lower lobe. The right apical pneumothorax now measures approximately 27 mm in width. No measurable pneumothorax can be seen at the left lung apex. The heart size is stable. IMPRESSION The lungs are improved, with a decrease in the extent and radiographic density of the infiltrates since August 10. A residual pleural effusion or pleural thickening can be seen on the left partly obscuring the diaphragm. A 2.7 cm pneumothorax persists at the right lung apex. No measurable pneumothorax can be appreciated at the left lung apex on this portable film. Ortiz Ag MD DIAGNOSTIC IMAGING ORDERABLES * (ABNORMAL) DIFFERENTIAL MANUAL (08/12/2010 4:30 AM FRAME AND SCRAP CRUSHER) Neutrophils % Manual 62 43 - 70 % [facility] Band % Manual 9(H) 0 - 8 % [facility] Lymphocytes % Manual 12(L) 22 - 41 % [facility] Monocytes % Manual 14(H) 2 - 11 % [facility] Eosinophils % 3(DE) 0.0 - 5.0 % [facility] RBC Morphology 1+ Polychromasia 1+ Macrocytes 1+ Anisocytosis [facility] Platelet Estimation Normal [facility] Cells Counted 100 [facility] BLOOD SPECIMEN / Unknown 08/12/2010 4:30 AM FR[employer] AND SCRAP CRUSHER 08/12/2010 5:19 AM FRAME AND SCRAP CRUSHER Nasima Joe MD LAB - HEMATOLOGY ORD ERABLES Performing Organization Address City/[facility]/ZIP Co de Phone Number [facility] [address] [place] [address] * (ABNORMAL) CBC W AUTO DIFFERENTIAL (08/12/2010 4:30 AM FRAME AND SCRAP CRUSHER) Only the most recent of3 resultswithin the time period is included. WBC 15.95(H) 4.0 - 11.0 X(10)3/L [facility] RBC 2.97(L) 3.8 - 5.3 X(10)6 [facility] Hemoglobin 8.5(L) 12.0 - 16.0 gm/dl [facility] Hematocrit 25.9(L) 36 - 47 % [facility] MCV 87.2(DE) 80.0 - 99.0 fl [facility] MCH 28.6 26 - 34 pg [facility] MCHC 32.8 32.0 - 37.0 gm/dl [facility] RDW 15.6(H) 11.5 - 14.5 % [facility] Platelet Count 279 150 - 400 K/CUMM [facility] MPV 12.0 9.2 - 12.2 fl [facility] Comment Manual Diff See Manual Differential [facility] BLOOD SPECIMEN / Unknown 08/12/2010 4:30 AM FRAME AND SCRAP CRUSHER 08/12/2010 4:57 AM FRAME AND SCRAP CRUSHER Ortiz Ag MD LAB - HEMATOLOGY O RDERABLES [facility] [address] [place] [address] * CULTURE MRSA (08/12/2010 3:00 AM FRAME AND SCRAP CRUSHER) Only the most recent of2 resultswithin the time period is included. Result [facility] Comment: Final CULTURE MRSA - No growth of Staphylococcus aureus(MRSA) SPECIMEN FROM NASAL FOSSAE / Unknown 08/12/2010 3:00 AM FRAME AND SCRAP CRUSHER 08/12/2010 3:30 AM FRAME AND SCRAP CRUSHER Narrative Resulting Agency Comment Performed By [facility];[address] [facility];[place] [address] Maryan Blake MD LAB - MICROBIOLOGY O RDERABLES Performing Organization Address [facility]/ZIP Co de Phone Number [facility] [address] [place] [address] * (ABNORMAL) URINALYSIS ROUTINE W/REFLEX TO CULTURE (08/11/2010 10:00 PM FRAME AND SCRAP CRUSHER) Only the most recent of2 resultswithin the time period is included. Color UA Yellow [facility] Character UA Clear [facility] Glucose UA Negative Negative [facility] Bilirubin UA Negative Negative [facility] Ketone UA Negative Negative mg/dl [facility] Specific [place] UA 1.015 1.003 - 1.030 [facility] pH UA 6.5 4.5 - 8.0 pH Units [facility] Protein UA 30(H) Negative [facility] Urobilinogen UA 1.0(H) <1.0 Jarod Units [facility] Nitrite UA Negative Negative mg/dl [facility] Blood UA Moderate(H) Negative mg/dl [facility] Leukocyte UA Negative Negative [facility] WBC UA 0-5 0 - 5 /HPF [facility] RBC UA 0-5 0 - 5 /HPF [facility] Epithelial Cell UA 0-5 0 - 5 /LPF [facility] Bacteria UA 1+ [facility] Microscopy Examination Urine Urine Micro Done [facility] Culture Urine No culture to be done per protocol [facility] URINE SPECIMEN OBTAINED VIA [facility]WELLING URINARY CATHETER / Unknown 08/11/2010 10:00 PM FRAME AND SCRAP CRUSHER 08/11/2010 10:11 PM FRAME AND SCRAP CRUSHER Litzy Dubose DIE FORGER-SYSTEM TECHNOLOGIST LAB - URINALYS IS ORDERABLES Performing Organization Address [facility]/ZIP Co de Phone Number [facility] [address] [place] [address] * (ABNORMAL) HEPATIC FUNCTION PANEL (08/11/2010 3:47 AM FRAME AND SCRAP CRUSHER) Bilirubin Total 1.0 0.2 - 1.3 mg/dl [facility] Bilirubin Direct 0.2 0.0 - 0.3 mg/dl [facility] Alkaline Phosphatase 145(DH) 38 - 126 U/L [facility] AST 75(DH) 14 - 36 U/L [facility] ALT 120(H) 9 - 52 U/L [facility] Protein Total 5.3(L) 6.3 - 8.2 gm/dl [facility] Albumin 3.0(L) 3.5 - 5.0 gm/dl [facility] BLOOD SPECIMEN / Unknown 08/11/2010 3:47 AM FRAME AND SCRAP CRUSHER 08/11/2010 4:11 AM FRAME AND SCRAP CRUSHER Edilson Horne MD LAB - CHEMISTRY ORDERABLES Performing Organization Address [facility]/[place]UST de Phone Number [facility] [address] [place] [address] * MAGNESIUM BLOOD (08/11/2010 3:47 AM FRAME AND SCRAP CRUSHER) Only the most recent of9 resultswithin the time period is included. Pathologist [facility] [place] Magnesium 2.3 1.6 - 2.3 mg/dl [facility] BLOOD SPECIMEN / Unknown 08/11/2010 3:47 AM FRAME AND SCRAP CRUSHER 08/11/2010 4:37 AM FRAME AND SCRAP CRUSHER Narrative [facility] - 08/11/2010 4:58 AM FRAME AND SCRAP CRUSHER add to blood in lab Ortiz Ag MD LAB - CHEMISTRY OR DERABLES Performing Organization Address [facility]/[place] de Phone Number [facility] [address] [place] [address] * (ABNORMAL) COMPREHENSIVE METABOLIC PANEL (08/10/2010 4:00 AM FRAME AND SCRAP CRUSHER) Only the most recent of2 resultswithin the time period is included. Pathologist [facility] [place] Glucose 123(DH) 65 - 105 mg/dl [facility] BUN 17 7 - 17 mg/dl [facility] Creatinine 0.50(L) 0.52 - 1.04 mg/dl [facility] Sodium 133(L) 137 - 145 mmol/L [facility] Potassium 3.7 3.6 - 5.0 mmol/L [facility] Chloride 93(L) 98 - 107 mmol/L [facility] CO2 33(H) 22 - 30 mmol/L [facility] Calcium 7.9(L) 8.4 - 10.2 mg/dl [facility] Bilirubin Total 1.1 0.2 - 1.3 mg/dl [facility] Alkaline Phosphatase 98 38 - 126 U/L [facility] AST 109(H) 14 - 36 U/L [facility] ALT 139(H) 9 - 52 U/L [facility] Protein Total 5.3(L) 6.3 - 8.2 gm/dl [facility] Albumin 3.1(L) 3.5 - 5.0 gm/dl [facility] eGFR By MDRD >60 >60 [facility] BLOOD SPECIMEN / Unknown 08/10/2010 4:00 AM FRAME AND SCRAP CRUSHER 08/10/2010 4:18 AM FRAME AND SCRAP CRUSHER Litzy Dubose DIE FORGER-SYSTEM TECHNOLOGIST LAB - CHEMISTR Y ORDERABLES Performing Organization Address City/State/[facility] Co de Phone Number [facility] [address] [place] [id number] * ECHOCARDIOGRAM 2D WITH DOPPLER (08/08/2010 7:23 AM FRAME AND SCRAP CRUSHER) 08/08/2010 7:23 AM FRAME AND SCRAP CRUSHER Narrative [facility] - 08/08/2010 8:24 AM FRAME AND SCRAP CRUSHER [address] [address] Transthoracic Echocardiogram 2D, M-mode, Doppler, and Color Doppler Patient: JESSENIA HAHN MR number: [id number] Height: Weight: BSA: Study date: 08-Aug-2010 : 1955 Age: 55 years Gender: Female 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 Summary: - Clinical question: - Post op left atrial myxoma Pulmonary congestion - History: - Recent myxoma resention now with increased chest tube output - Left ventricle: - Systolic function was normal. Ejection fraction was estimated in the range of 55 % to 65 %. - There were no regional wall motion abnormalities. - Wall thickness was normal. - Atrial septum: - the iinteratrial septum is thickened but no mass is seen. - Contrast injection was performed. There was no wtqtm-sr-lvii shunt, with provocative maneuvers to increase right atrial pressure. - Contrast injection was performed. There was no boudq-xv-vxel shunt, with provocative maneuvers to increase right atrial pressure. - Tricuspid valve: - There was moderate regurgitation. - Pericardium: - This pericardium is mildly thickened with no significant effusion - Impressions: - Hyperdynamic LV No significant pericardial effusion Atrial septum appears intact. Indications: Post op left atrial myxoma Pulmonary congestion History: Prior history: Recent myxoma resention now with increased chest tube output Procedure: This was a stat study. The transthoracic approach was used. The study included complete 2D imaging, M-mode, complete spectral Doppler, and color Doppler. Image quality was adequate. Left ventricle: Size was normal. Systolic function was normal. Ejection fraction was estimated in the range of 55 % to 65 %. There were no regional wall motion abnormalities. Wall thickness was normal. Aortic valve: The valve was trileaflet. Leaflets exhibited normal thickness and normal cuspal separation. Doppler: Transaortic velocity was within the normal range. There was no stenosis. There was no regurgitation. Aorta: The root exhibited normal size. Mitral valve: Valve structure was normal. There was normal leaflet separation. Doppler: The transmitral velocity was within the normal range. There was no evidence for stenosis. There was no regurgitation. Left atrium: Size was normal. Atrial septum: the iinteratrial septum is thickened but no mass is seen. No defect or patent foramen ovale was identified. Contrast injection was performed. There was no tzywx-kb-wazf shunt, with provocative maneuvers to increase right atrial pressure. Contrast injection was performed. There was no mdpyy-gk-odps shunt, with provocative maneuvers to increase right atrial pressure. Right ventricle: The size was normal. Systolic function was normal. Wall thickness was normal. Pulmonic valve: Leaflets exhibited normal thickness, no calcification, and normal cuspal separation. Doppler: There was no regurgitation. Tricuspid valve: Doppler: There was moderate regurgitation. Right atrium: Size was normal. Pericardium: This pericardium is mildly thickened with no significant effusion There was no pericardial effusion. The pericardium was normal in appearance. Impressions: Hyperdynamic LV No significant pericardial effusion Atrial septum appears intact. System measurement tables M mode AoR Diam (MM): 27 mm AoR Diam; Mean (MM): 27 mm LA Dimension; Mean (MM): 32 mm Left Atrium Avni-posterior Systolic Dimension; M mode;: 32 mm Left Atrium to Aortic Root Ratio; M mode;: 1.2 1 EF (MM-Cubed): 95.7 % EF (MM-Teich): 92.7 % IVSd (MM): 16.5 mm IVSd; Mean (MM): 16.5 mm Interventricular Septum to Posterior Wall Thickness Ratio; M mode;: 1.5 1 LVIDd (MM): 39.6 mm LVIDd; Mean (MM): 39.6 mm LVIDs (MM): 13.9 mm LVIDs; Mean (MM): 13.9 mm LVPWd (MM): 11 mm LVPWd; Mean (MM): 11 mm Left Ventricle Mass; Cube Method; M mode;: 200 g Left Ventricular End Diastolic Volume; Cube Method; M mode;: 46970 mm3 Left Ventricular End Diastolic Volume; Teichholz; M mode;: 69846 mm3 Left Ventricular End Systolic Volume; Cube Method; M mode;: 2690 mm3 Left Ventricular End Systolic Volume; Teichholz; M mode;: 4960 mm3 Left Ventricular Fractional Shortening; Cube Method; M mode;: 64.9 % Left Ventricular Fractional Shortening; Teichholz; M mode;: 64.9 % Stroke Volume; Cube Method; M mode;: 75961 mm3 Stroke Volume; Teichholz; M mode;: 21407 mm3 RVIDd; Mean (MM): 11.7 mm Right Ventricular Internal Diastolic Dimension; M mode;: 11.7 mm Tissue Doppler Imaging LV Peak Early Ahn Tissue Carlos; Lateral MA (TDI): 75.1 mm/s LV Peak Early Ahn Tissue Carlos; Mean; Lateral MA (TDI): 75.1 mm/s LV Peak Early Ahn Tissue Carlos; Mean; Medial MA (TDI): 58.5 mm/s LV Peak Early Ahn Tissue Carlos; Medial MA (TDI): 58.5 mm/s Unspecified Scan Mode Mean Grad; Antegrade Flow: 3 mm[Hg] Mean Grad; Mean value; Antegrade Flow: 3 mm[Hg] Mean Carlos; Antegrade Flow: 820 mm/s Mean Carlos; Mean value; Antegrade Flow: 820 mm/s VTI; Antegrade Flow: 206 mm VTI; Mean; Antegrade Flow: 206 mm LVOT Mean Grad: 2 mm[Hg] LVOT Mean Grad; Mean value: 2 mm[Hg] LVOT Mean Carlos: 662 mm/s LVOT Mean Carlos; Mean value: 662 mm/s LVOT Peak Grad; Mean: 5 mm[Hg] LVOT VTI: 197 mm LVOT VTI; Mean: 197 mm LVOT Vmax: 1170 mm/s LVOT Vmax; Mean: 1170 mm/s MV Peak Carlos/LV Peak Tissue Carlos E-Wave; Lateral MA: 16.6 1 MV Peak Carlos/LV Peak Tissue Carlos E-Wave; Medial MA: 21.4 1 DT; Antegrade Flow: 206 ms DT; Mean; Antegrade Flow: 206 ms MV Peak A Carlos: 252 mm/s MV Peak A Carlos; Mean: 252 mm/s MV Peak E Carlos; Antegrade Flow: 1250 mm/s Mitral Valve E to A Ratio;: 5 1 Mitral Valve E-Wave Peak Velocity; Mean; Mean value chosen; Antegrade Flow;: 1250 mm/s Accel Time; Antegrade Flow: 84 ms Accel Time; Mean; Antegrade Flow: 77 ms Acceleration Hughes; Antegrade Flow;: 73233 mm/s2 Acceleration Hughes; Mean; Mean value chosen; Antegrade Flow;: 59685 mm/s2 Peak Grad; Mean; Antegrade Flow: 4 mm[Hg] Vmax; Antegrade Flow: 1040 mm/s Vmax; Mean; Antegrade Flow: 1000 mm/s RA Pressure; Recent value: 10 mm[Hg] RVSP: 32 mm[Hg] Peak Grad; Mean; Regurgitant Flow: 22 mm[Hg] Vmax; Mean; Regurgitant Flow: 2330 mm/s Vmax; Regurgitant Flow: 2690 mm/s Prepared and signed by Luca Heck MD Signed 08-Aug-2010 08:24:06 Procedure Note 08/08/[address] [address] Transthoracic Echocardiogram 2D, M-mode, Doppler, and Color Doppler Patient: JESSENIA HAHN MR number: [id number] Height: Weight: BSA: Study date: 08-Aug-2010 : 1955 Age: 55 years Gender: Female 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 Summary: - Clinical question: - Post op left atrial myxoma Pulmonary congestion - History: - Recent myxoma resention now with increased chest tube output - Left ventricle: - Systolic function was normal. Ejection fraction was estimated in the range of 55 % to 65 %. - There were no regional wall motion abnormalities. - Wall thickness was normal. - Atrial septum: - the iinteratrial septum is thickened but no mass is seen. - Contrast injection was performed. There was no pkyxr-fd-hsax shunt, with provocative maneuvers to increase right atrial pressure. - Contrast injection was performed. There was no uhjpm-gq-jkic shunt, with provocative maneuvers to increase right atrial pressure. - Tricuspid valve: - There was moderate regurgitation. - Pericardium: - This pericardium is mildly thickened with no significant effusion - Impressions: - Hyperdynamic LV No significant pericardial effusion Atrial septum appears intact. Indications: Post op left atrial myxoma Pulmonary congestion History: Prior history: Recent myxoma resention now with increased chest tube output Procedure: This was a stat study. The transthoracic approach was used. The study included complete 2D imaging, M-mode, complete spectral Doppler, and color Doppler. Image quality was adequate. Left ventricle: Size was normal. Systolic function was normal. Ejection fraction was estimated in the range of 55 % to 65 %. There were no regional wall motion abnormalities. Wall thickness was normal. Aortic valve: The valve was trileaflet. Leaflets exhibited normal thickness and normal cuspal separation. Doppler: Transaortic velocity was within the normal range. There was no stenosis. There was no regurgitation. Aorta: The root exhibited normal size. Mitral valve: Valve structure was normal. There was normal leaflet separation. Doppler: The transmitral velocity was within the normal range. There was no evidence for stenosis. There was no regurgitation. Left atrium: Size was normal. Atrial septum: the iinteratrial septum is thickened but no mass is seen. No defect or patent foramen ovale was identified. Contrast injection was performed. There was no mqaru-gd-nchf shunt, with provocative maneuvers to increase right atrial pressure. Contrast injection was performed. There was no thfmi-vf-pruv shunt, with provocative maneuvers to increase right atrial pressure. Right ventricle: The size was normal. Systolic function was normal. Wall thickness was normal. Pulmonic valve: Leaflets exhibited normal thickness, no calcification, and normal cuspal separation. Doppler: There was no regurgitation. Tricuspid valve: Doppler: There was moderate regurgitation. Right atrium: Size was normal. Pericardium: This pericardium is mildly thickened with no significant effusion There was no pericardial effusion. The pericardium was normal in appearance. Impressions: Hyperdynamic LV No significant pericardial effusion Atrial septum appears intact. System measurement tables M mode AoR Diam (MM): 27 mm AoR Diam; Mean (MM): 27 mm LA Dimension; Mean (MM): 32 mm Left Atrium Avni-posterior Systolic Dimension; M mode;: 32 mm Left Atrium to Aortic Root Ratio; M mode;: 1.2 1 EF (MM-Cubed): 95.7 % EF (MM-Teich): 92.7 % IVSd (MM): 16.5 mm IVSd; Mean (MM): 16.5 mm Interventricular Septum to Posterior Wall Thickness Ratio; M mode;: 1.5 1 LVIDd (MM): 39.6 mm LVIDd; Mean (MM): 39.6 mm LVIDs (MM): 13.9 mm LVIDs; Mean (MM): 13.9 mm LVPWd (MM): 11 mm LVPWd; Mean (MM): 11 mm Left Ventricle Mass; Cube Method; M mode;: 200 g Left Ventricular End Diastolic Volume; Cube Method; M mode;: 96556 mm3 Left Ventricular End Diastolic Volume; Teichholz; M mode;: 57873 mm3 Left Ventricular End Systolic Volume; Cube Method; M mode;: 2690 mm3 Left Ventricular End Systolic Volume; Teichholz; M mode;: 4960 mm3 Left Ventricular Fractional Shortening; Cube Method; M mode;: 64.9 % Left Ventricular Fractional Shortening; Teichholz; M mode;: 64.9 % Stroke Volume; Cube Method; M mode;: 53141 mm3 Stroke Volume; Teichholz; M mode;: 23566 mm3 RVIDd; Mean (MM): 11.7 mm Right Ventricular Internal Diastolic Dimension; M mode;: 11.7 mm Tissue Doppler Imaging LV Peak Early Ahn Tissue Carlos; Lateral MA (TDI): 75.1 mm/s LV Peak Early Ahn Tissue Carlos; Mean; Lateral MA (TDI): 75.1 mm/s LV Peak Early Ahn Tissue Carlos; Mean; Medial MA (TDI): 58.5 mm/s LV Peak Early Ahn Tissue Carlos; Medial MA (TDI): 58.5 mm/s Unspecified Scan Mode Mean Grad; Antegrade Flow: 3 mm[Hg] Mean Grad; Mean value; Antegrade Flow: 3 mm[Hg] Mean Carlos; Antegrade Flow: 820 mm/s Mean Carlos; Mean value; Antegrade Flow: 820 mm/s VTI; Antegrade Flow: 206 mm VTI; Mean; Antegrade Flow: 206 mm LVOT Mean Grad: 2 mm[Hg] LVOT Mean Grad; Mean value: 2 mm[Hg] LVOT Mean Carlos: 662 mm/s LVOT Mean Carlos; Mean value: 662 mm/s LVOT Peak Grad; Mean: 5 mm[Hg] LVOT VTI: 197 mm LVOT VTI; Mean: 197 mm LVOT Vmax: 1170 mm/s LVOT Vmax; Mean: 1170 mm/s MV Peak Carlos/LV Peak Tissue Carlos E-Wave; Lateral MA: 16.6 1 MV Peak Carlos/LV Peak Tissue Carlos E-Wave; Medial MA: 21.4 1 DT; Antegrade Flow: 206 ms DT; Mean; Antegrade Flow: 206 ms MV Peak A Carlos: 252 mm/s MV Peak A Carlos; Mean: 252 mm/s MV Peak E Carlos; Antegrade Flow: 1250 mm/s Mitral Valve E to A Ratio;: 5 1 Mitral Valve E-Wave Peak Velocity; Mean; Mean value chosen; Antegrade Flow;: 1250 mm/s Accel Time; Antegrade Flow: 84 ms Accel Time; Mean; Antegrade Flow: 77 ms Acceleration Hughes; Antegrade Flow;: 89499 mm/s2 Acceleration Hughes; Mean; Mean value chosen; Antegrade Flow;: 11141 mm/s2 Peak Grad; Mean; Antegrade Flow: 4 mm[Hg] Vmax; Antegrade Flow: 1040 mm/s Vmax; Mean; Antegrade Flow: 1000 mm/s RA Pressure; Recent value: 10 mm[Hg] RVSP: 32 mm[Hg] Peak Grad; Mean; Regurgitant Flow: 22 mm[Hg] Vmax; Mean; Regurgitant Flow: 2330 mm/s Vmax; Regurgitant Flow: 2690 mm/s Prepared and signed by Luca Heck MD Signed 08-Aug-2010 08:24:06 Nasima Joe MD ECHO ORDERABLES Performing Organization Address [facility] Co de Phone Number [facility] [address] [place] [address] * (ABNORMAL) BLOOD GASES ARTERIAL (08/08/2010 4:04 AM FRAME AND SCRAP CRUSHER) Only the most recent of3 resultswithin the time period is included. pH Arterial 7.43 7.35 - 7.45 [facility] pCO2 Arterial 36.3 35 - 45 mm Hg [facility] pO2 Arterial 46.8(LL) 80 - 100 mm Hg [facility] HCO3 Arterial 23.8 22 - 26 [facility] Base Excess Arterial -0.1 -2.0 - 2.0 [facility] O2 Saturation Arterial 82.8(L) 97 - 100 % [facility] FI O2 Arterial 100 % [facility] Liters na [facility] VT na [facility] Mode Non-rebreath er [facility]piratory Rate 30 [facility] PEEP na [facility] Pressure Support na [facility] Site L.RADIAL [facility] Fidel's Test Positive [facility] ARTERIAL BLOOD SPECIMEN / Unknown 08/08/2010 4:04 AM FRAME AND SCRAP CRUSHER 08/08/2010 4:08 AM FRAME AND SCRAP CRUSHER Edilson Horne MD LAB - BLOOD GASE S ORDERABLES Performing Organization Address [facility] Co de Phone Number [facility] [address] [place] [address] * FIBRINOGEN ACTIVITY (08/08/2010 4:00 AM FRAME AND SCRAP CRUSHER) Only the most recent of2 resultswithin the time period is included. Fibrinogen 394.9 200 - 400 mg/dl [facility] BLOOD SPECIMEN / Unknown 08/08/2010 4:00 AM FRAME AND SCRAP CRUSHER 08/08/2010 4:10 AM FRAME AND SCRAP CRUSHER Edilson Horne MD LAB - COAGULATIO N ORDERABLES Performing Organization Address City/[facility] Co de Phone Number [facility] [address] [place] [address] * PTT (08/08/2010 4:00 AM FRAME AND SCRAP CRUSHER) PTT 26.9 23.0 - 34.0 seconds [facility] BLOOD SPECIMEN / Unknown 08/08/2010 4:00 AM FRAME AND SCRAP CRUSHER 08/08/2010 4:10 AM FRAME AND SCRAP CRUSHER Edilson Horne MD LAB - COAGULATIO N ORDERABLES Performing Organization Address [facility] Co de Phone Number [facility] [address] [place] [address] * (ABNORMAL) PLATELET COUNT AUTO (08/08/2010 4:00 AM FRAME AND SCRAP CRUSHER) Only the most recent of4 resultswithin the time period is included. Platelet Count 111(DL) 150 - 400 K/CUMM [facility] BLOOD SPECIMEN / Unknown 08/08/2010 4:00 AM FRAME AND SCRAP CRUSHER 08/08/2010 4:10 AM FRAME AND SCRAP CRUSHER Edilson Horne MD LAB - HEMATOLOGY ORDERABLES Performing Organization Address [facility] Co de Phone Number [facility] [address] [place] [address] * (ABNORMAL) CALCIUM IONIZED BLOOD (08/08/2010 4:00 AM FRAME AND SCRAP CRUSHER) Only the most recent of3 resultswithin the time period is included. Calcium 8.1(L) 8.4 - 10.2 mg/dl [facility] Protein Total 5.4(L) 6.3 - 8.2 gm/dl [facility] Calculatedium Ionized Calculated mg/dL 4.1 3.9 - 6.6 mg/dl [facility] BLOOD SPECIMEN SUBMITTED IN HEPARINIZED COLLECTION TUBE / Unknown 08/08/2010 4:00 AM FRAME AND SCRAP CRUSHER 08/08/2010 4:10 AM FRAME AND SCRAP CRUSHER Litzy Dubose DIE FORGER-SYSTEM TECHNOLOGIST LAB - CHEMISTR Y ORDERABLES Performing Organization Address [facility] Co de Phone Number [facility] [address] [place] [address] * (ABNORMAL) COAGULATION PANEL W D-DIMER (08/07/2010 12:40 PM FRAME AND SCRAP CRUSHER) Only the most recent of2 resultswithin the time period is included. PT 12.0(H) 9.3 - 11.4 seconds [facility] PTT 26.3 23.0 - 34.0 seconds [facility] Fibrinogen 342.9 200 - 400 mg/dl [facility] Platelet Count 78(DL) 150 - 400 K/CUMM [facility] INR 1.16(H) SEE BELOW [facility] Comment: 0.92-1.12 Normal 2.0-3.0 Therapeutic Low Risk 2.5-3.5 Therapeutic High Risk D-Dimer 324 <400 ng/ml [facility] BLOOD SPECIMEN / Unknown 08/07/2010 12:40 PM FRAME AND SCRAP CRUSHER 08/07/2010 12:40 PM FRAME AND SCRAP CRUSHER Litzy Dubose APRN-[facility] [place] LAB - COAGULAT ION ORDERABLES Performing Organization Address [facility]/[place] de Phone Number [facility] [address] [place] [address] * HEPARIN PLATELET INDUCED ANTIBODY (08/07/2010 12:14 PM FRAME AND SCRAP CRUSHER) Heparin Induced Platelet Antibody Negative [facility] BLOOD SPECIMEN / Unknown 08/07/2010 12:14 PM FRAME AND SCRAP CRUSHER 08/07/2010 12:30 PM FRAME AND SCRAP CRUSHER Narrative Resulting Agency Comment Performed By Coagulation Reference [facility] [address] [place] [id number] Litzy Dubose DIE FORGER-SYSTEM TECHNOLOGIST LAB - CHEMISTR Y ORDERABLES Performing Organization Address [facility] Co de Phone Number [facility] [address] [place] [address] * (ABNORMAL) HGB HCT PANEL (08/07/2010 12:14 PM FRAME AND SCRAP CRUSHER) Only the most recent of5 resultswithin the time period is included. Hemoglobin 9.1(L) 12.0 - 16.0 gm/dl [facility] Hematocrit 26.1(DL) 36 - 47 % [facility] BLOOD SPECIMEN / Unknown 08/07/2010 12:14 PM FRAME AND SCRAP CRUSHER 08/07/2010 12:29 PM FRAME AND SCRAP CRUSHER Nasima Joe MD LAB - HEMATOLOGY ORD ERABLES Performing Organization Address City/[facility]/ZIP Co de Phone Number [facility] [address] [place] [address] * POTASSIUM BLOOD (08/07/2010 12:14 PM FRAME AND SCRAP CRUSHER) Only the most recent of4 resultswithin the time period is included. Potassium 4.0 3.6 - 5.0 mmol/L [facility] BLOOD SPECIMEN / Unknown 08/07/2010 12:14 PM FRAME AND SCRAP CRUSHER 08/07/2010 12:29 PM FRAME AND SCRAP CRUSHER Nasima Joe MD LAB - CHEMISTRY ORDE RABLES Performing Organization Address City/[facility] Co de Phone Number [facility] [address] [place], [place] [address] * FFP X2 (08/07/2010 8:17 AM FRAME AND SCRAP CRUSHER) Number of Units 2 [facility] BLOOD SPECIMEN / Unknown 08/07/2010 8:17 AM FRAME AND SCRAP CRUSHER 08/07/2010 8:17 AM FRAME AND SCRAP CRUSHER Litzy Dubose DIE FORGER-SYSTEM TECHNOLOGIST LAB - BLOOD BA NK ORDERABLES Performing Organization Address City/[facility] Co de Phone Number [facility] [address] [place], [place] [address] * CRYOPRECIPITATE X10 (08/07/2010 8:17 AM FRAME AND SCRAP CRUSHER) Only the most recent of2 resultswithin the time period is included. Number of Units 1 [facility] BLOOD SPECIMEN / Unknown 08/07/2010 8:17 AM FRAME AND SCRAP CRUSHER 08/07/2010 8:17 AM FRAME AND SCRAP CRUSHER Litzy Jonnakaylene Dubose DIE FORGER-SYSTEM TECHNOLOGIST LAB - BLOOD BA NK ORDERABLES Performing Organization Address [facility]/[place] de Phone Number [facility] [address] [place] [address] * D-DIMER (08/07/2010 5:15 AM FRAME AND SCRAP CRUSHER) D-Dimer 132 <400 ng/ml [facility] Interpretation D-Dimer [facility] Comment: D-Dimer is a test of exclusion. A negative result has a 95% probability of ruling out PE or VTE BLOOD SPECIMEN / Unknown 08/07/2010 5:15 AM FRAME AND SCRAP CRUSHER 08/07/2010 5:16 AM FRAME AND SCRAP CRUSHER Narrative [facility] - 08/07/2010 5:38 AM FRAME AND SCRAP CRUSHER add to blood in lab Nasima Joe MD LAB - COAGULATION OR DERABLES Performing Organization Address [facility] Co de Phone Number [facility] [address] [facility] [place] [address] * TYPE RUFUS XMATCH RBC X2 (08/07/2010 4:30 AM FRAME AND SCRAP CRUSHER) Only the most recent of2 resultswithin the time period is included. Number of Units 2 [facility] BLOOD SPECIMEN / Unknown 08/07/2010 4:30 AM FRAME AND SCRAP CRUSHER 08/07/2010 4:36 AM FRAME AND SCRAP CRUSHER Julien Burgos MD LAB - BLOOD BANK ORD ERABLES Performing Organization Address [facility] Co de Phone Number [facility] [address] [place] [address] * (ABNORMAL) PT PTT PANEL (08/07/2010 4:05 AM FRAME AND SCRAP CRUSHER) Only the most recent of3 resultswithin the time period is included. PT 19.6(H) 9.3 - 11.4 seconds [facility] INR 1.92(H) SEE BELOW [facility] Comment: 0.92-1.12 Normal 2.0-3.0 Therapeutic Low Risk 2.5-3.5 Therapeutic High Risk PTT 38.4(H) 23.0 - 34.0 seconds [facility] BLOOD SPECIMEN / Unknown 08/07/2010 4:05 AM FRAME AND SCRAP CRUSHER 08/07/2010 4:13 AM FRAME AND SCRAP CRUSHER Narrative Resulting Agency Comment Performed By -COA Nasima Joe MD LAB - COAGULATION OR DERABLES Performing Organization Address [facility] Co de Phone Number [facility] [address] [place] [address] * EKG 12-LEAD (08/07/2010) Only the most recent of2 resultswithin the time period is included. Phillip Manrique MD ECG ORDERABLES * TYPE SCRKaylene XMATCH RBC X1 (08/06/2010 7:37 PM FRAME AND SCRAP CRUSHER) Number of Units 1 [facility] BLOOD SPECIMEN / Unknown 08/06/2010 7:37 PM FRAME AND SCRAP CRUSHER 08/06/2010 7:37 PM FRAME AND SCRAP CRUSHER Nasima Joe MD LAB - BLOOD BANK ORD ERABLES Performing Organization Address [facility] Co de Phone Number [facility] [address] [place] [address] * FFP X1 (08/06/2010 4:26 PM FRAME AND SCRAP CRUSHER) Only the most recent of2 resultswithin the time period is included. Number of Units 1 [facility] BLOOD SPECIMEN / Unknown 08/06/2010 4:26 PM FRAME AND SCRAP CRUSHER 08/06/2010 4:26 PM FRAME AND SCRAP CRUSHER Litzy Dubose DIE FORGER-SYSTEM TECHNOLOGIST LAB - BLOOD BA NK ORDERABLES Performing Organization Address [facility] Co de Phone Number [facility] [address] [place] [address] * CULTURE MSSA (08/06/2010 11:00 AM FRAME AND SCRAP CRUSHER) Result [facility] Comment: Final CULTURE No growth of STAPHYLOCOCCUS AUREUS (MSSA) SPECIMEN FROM NASAL FOSSAE / Unknown 08/06/2010 11:00 AM FRAME AND SCRAP CRUSHER 08/06/2010 11:21 AM FRAME AND SCRAP CRUSHER Narrative Resulting Agency Comment Performed By [facility];[address] [facility];[place] [address] Dee Boyd Chrisdoris DIE FORGER-SYSTEM TECHNOLOGIST LAB - MICROBI OLOGY ORDERABLES [facility] [address] [place] [address] * GROSS + MICRO EXAM (08/06/2010 9:04 AM FRAME AND SCRAP CRUSHER) Only the most recent of2 resultswithin the time period is included. Result CASE NUMBER [id number] Comment: ORDERING PHYSICIAN NASIMA JOE SPECIMEN TYPE Tissue-Left Atrial Myxoma DATE OF PROCEDURE 08/06/2010 SPECIMEN LABELED Left atrial myxoma PRE-OP DIAGNOSIS Left atrial myxoma GROSS DESCRIPTION GROSS DESCRIPTION The specimen is received in formalin labeled left atrial myxoma patient Jessenia Hahn, and consists of a 2.5 x 2 x 0.5 cm pink/white glistening oval tissue fragment. The surface has a 1.5 x 1.2 x 1 cm purple/alan semitransparent appearing dome shaped area. Sections through the surface show a red cut surface. Submitted entirely in cassettes A1/A2. Dictated by DYT MICROSCOPIC DESCRIPTION Microscopic examination of the sections submitted from the left atrial myxoma shows atrial myxoma with focal area of osseous metaplasia. Malignancy is not seen within these sections. DIAGNOSIS Heart, left atrium, mass, excision - Myxoma. Dictated by Dr. Candy Vera CPT [id number] Assistant Professor Of Nursing EDIE PAREKH Electronically Signed By JUNAID VERA MISCELLANEOUS SAMPLES / Unknown 08/06/2010 9:04 AM FRAME AND SCRAP CRUSHER 08/06/2010 1:02 PM FRAME AND SCRAP CRUSHER Historical Provider LAB - PATHOLOGY/C YTOLOGY ORDERABLES * (ABNORMAL) URINALYSIS ROUTINE AUTO (07/24/2010 4:15 PM FRAME AND SCRAP CRUSHER) Color UA Yellow [facility] Character UA Clear [facility] Glucose UA Negative Negative [facility] Bilirubin UA Negative Negative [facility] Ketone UA Negative Negative mg/dl [facility] Specific [place] UA 1.010 1.003 - 1.030 [facility] pH UA 8.0 4.5 - 8.0 pH Units [facility] Protein UA Negative Negative [facility] Urobilinogen UA 0.2 <1.0 Jarod Units [facility] Nitrite UA Negative Negative mg/dl [facility] Blood UA Negative Negative mg/dl [facility] Leukocyte UA Trace(H) Negative [facility] WBC UA 0-5 0 - 5 /HPF [facility] Epithelial Cell UA 0-5 0 - 5 /LPF [facility] Bacteria UA Trace [facility] Microscopy Examination Urine Urine Micro Done [facility] URINE SPECIMEN OBTAINED BY CLEAN CATCH PROCEDURE / Unknown 07/24/2010 4:15 PM FRAME AND SCRAP CRUSHER 07/24/2010 4:27 PM FRAME AND SCRAP CRUSHER Nasima Joe MD LAB - URINALYSIS ORD ERABLES Performing Organization Address [facility]/ZIP Co de Phone Number [facility] [address] [place] [address] * HEMOGLOBIN A1C (07/24/2010 4:15 PM FRAME AND SCRAP CRUSHER) Hemoglobin A1c 6.0 3.9 - 6.1 % [facility] Estimated Average Glucose 125.5 mg/dl [facility] BLOOD SPECIMEN / Unknown 07/24/2010 4:15 PM FRAME AND SCRAP CRUSHER 07/24/2010 4:26 PM FRAME AND SCRAP CRUSHER Narrative Resulting Agency Comment Performed By [place] [address] Nasima Joe MD LAB - CHEMISTRY ORDE LEIGH Performing Organization Address [facility] Co de Phone Number [facility] [address] [facility] [place] [address] * TYPE + SCREEN PANEL (07/24/2010 4:15 PM FRAME AND SCRAP CRUSHER) ABO Rh A POS [facility] Antibody Screen NEG [facility] BLOOD SPECIMEN / Unknown 07/24/2010 4:15 PM FRAME AND SCRAP CRUSHER 07/24/2010 4:26 PM FRAME AND SCRAP CRUSHER Nasima Joe MD LAB - BLOOD BANK ORD ERABLES Performing Organization Address City/[facility]/ZIP Co de Phone Number [facility] [address] [facility] [place] [address] * CARDIAC PROCEDURE ORDER (07/23/2010 12:58 PM FRAME AND SCRAP CRUSHER) Narrative Procedure Note Document, Scanned - 07/23/2010 11:13 AM FRAME AND SCRAP CRUSHER Scanned Document CARDIAC SERVICES ORD ERABLES * CARDIAC CATH ORDER (07/22/2010) 07/22/2010 Narrative Procedure Note Micah Ramos MD - 07/22/2010 2:37 PM CSTSSM [facility] [place] [address] CARDIAC CATHETERIZATION LAB PATIENT NAME: JESSENIA HAHN [facility]#: [id number] ROOM #: [facility]#: [id number] DATE OF ADMISSION: 07/22/2010 SURGEON: Micah Ramos MD DATE OF PROCEDURE: 07/22/2010 PROCEDURE PERFORMED: Left heart cardiac catheterization. 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 As part of preop evaluation, she isundergoing coronary angiography. The risks and benefits of this procedurewere discussed in detail with Ms. Hahn and she agreed to proceed. PROCEDURE PERFORMED: 1.The patient prepped and draped in usual sterile fashion. 2.Lidocaine 2% was used to anesthetize right femoral atrial site. 3.A 5-Nepalese sheath placed under fluoroscopic guidance usingpercutaneous technique. 4.Selective lusi-jm-fazxz coronary angiographywas performed using JL-4, JR-4 catheter. 5.Pigtail catheter was placedretrograde across the aortic valve for LV gram in OSBORNE projection. 6.Atthe conclusion of the procedure, sheath was removed and manual pressurewas held. FINDINGS: Left main coronary artery is trifurcating left main, free ofangiographically significant coronary artery disease. There is a largeramus branch, it is also free of angiographically significant coronaryartery disease. Circumflex coronary artery consists of a very large 2ndobtuse marginal branch, it is free of angiographically significantcoronary artery disease. Left anterior descending coronary artery extendsthe apex, it is somewhat serpiginous, but free of angiographicallysignificant coronary artery disease. Right coronary artery is largedominant vessel, it was free of angiographically significant coronaryartery disease. There is a fairly large proximal branch of the RCA, whichcould be supplying the myxoma. Left ventricular systolic function is normal. LV pressure is 120/10, leftventricular end-diastolic pressure of 15. There is no gradient uponpullback across the aortic valve. RESULTS: 1.No angiographic evidence of atherosclerotic coronary artery disease. 2.Normal left ventricular size and systolic function. THERAPEUTIC RECOMMENDATIONS: Ms. Hahn will now undergo surgicalremoval of her atrial myxoma per the direction of Dr. Ryan. Micah Ramos MD TWS/MedQ /[id number] cc:Lakhwinder Ryan MD [address] [place] [address] CARDIAC CATHETERIZATION LAB - Micah Ramos MD CARDIAC CRUSHER DRY GROUND MICA OR DERABLES Care Teams Skirt Clipper Relationship Specialty Start Date End Date Luca Oliveira DO [address] [place] [id number] PCP - General 07/19/10
--- OUTSIDE RECORDS SUMMARY | 2024-08-01 11:49 | XMS_ITS | Encounter Summary ---
Author Organization [employer] Address 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
--- OUTSIDE RECORDS SUMMARY | 2024-08-01 11:49 | XMS_ITS | Continuity of Care Document ---
Author Organization [facility] Address [address] [place] [address] Phone Care Team Providers Care Parts Counterman Name Role Phone Iam Blackwood MD Unavailable Unavailable Allergies, Adverse Reactions, Alerts Substance Reaction Status Criticality adhesive RashRash Active No Information SILVER RashRash Active No Information BELA Inhibitors Cough Active No Informatio n Medications Medication Instructions Dosage Effective Dates (start - stop) Status Comments omega-3 fatty acids-fish oil 300 mg-1,000 mg capsule take 2 capsules by mouth daily - Active omeprazole 20 mg capsule,delayed release take 1 capsule by oral route 2 times every day 30 minutes to 1 hour before a meal 20 MG - Active trazodone 50 mg tablet take 1 tablet by oral route every day at bedtime 50 MG - Active Flonase Allergy Relief 50 mcg/actuation nasal spray,suspension spray 2 spray by intranasal route 2 times every day in each nostril 100-100 MCG - Active losartan 50 mg tablet take 1 tablet by oral route every day 50 MG - Active Xarelto 20 mg tablet take 1 tablet by oral route every day with the evening meal 20 MG - Active atorvastatin 20 mg tablet take 1 tablet by oral route every bedtime 20 MG - Active metoprolol tartrate 25 mg tablet take .5 tablet by mouth 2 times daily - Active Zyrtec 10 mg capsule take 1 capsule by mouth daily early education teacher - Active Advance Directives Directive Yes / No Effective Date File Name No Information Encounters Encounter Description Practice Location Reason(s) For Visit Diagnoses Date Provider Providers Copied on [facility] [address], [place], [place], [id number], tel:[phone] [facility] No Information Merced Vitale. [address] [facility] , [address], [place], [place], [id number], [place]. tel:[phone] Family History Family Member Type Diagnosis Age At Onset No Information Payers Payer name Insurance type Covered alliance party ID Authoriza tion(s) No Information Social History Type Description Quantity Date Captured Comments Alcohol Use Details Unknown Caffeine Use Details Unknown Tobacco Use Status No Information Smoking Status No Information Sex Female Chief Complaint And Reason For Visit No Information Reason For Referral Reason For Referral No Information History Of Present Illness Encounter Date Complaint History Of Prese nt Illness No Information Functional Status Date Functional Assessmen t No Information Instructions Date Instruction Additional Infor mation No Information Assessments Type Assessment Date No Information Patient Care Teams Name Effective Dates (start - stop) Status Members No Information
--- OUTSIDE RECORDS SUMMARY | 2024-08-01 11:49 | XMS_ITS | Clinical Summary ---
Author Organization [facility] [employer] Address [address] [place] [address] Care Team Providers Care What Job Titles Mean Name Role Phone Luca Oliveira Primary Care Provider Source Comments [facility] [employer],non-owned Affiliates and Associated Physician Practices is amultiple site organization consisting of ambulatory clinics and hospital sitesin [place], [place], [place]. This disclosure is being madepursuant to the Care Everywhere program and may not contain all information available regarding this patient. Last updated 18.[facility] [employer] Allergies Active Allergy Reactions Criticality Noted Date Comments Andriy Inhibitors Cough 10/30/2015 Adhesive Sensitivity Rash Low 08/02/2010 Silver Rash Medium 11/25/2012 Medications * Be aware that medications may not be up to date on this document. Alwaysverify current medications with the patient. Medication Sig Dispensed Refills Start Date End Date Status multivitamin daily (THERAGRAN) tablet Take 1 Tab by mouth daily with food. Active omeprazole (PRILOSEC) 20 MG capsule Take 20 mg by mouth daily before breakfast. Active metoprolol tartrate IR (LOPRESSOR) 25 MG tablet Take 1 Tab by mouth 2 times daily. 60 Tab 1 08/14/2010 Active rivaroxaban (XARELTO) 20 MG tablet Take 20 mg by mouth once daily 02/16/2018 Active losartan (COZAAR) 50 MG tablet Take 50 mg by mouth once daily 02/16/2018 Active EPINEPHrine (EPIPEN) 0.3 MG/0.3ML auto-injector pen Inject 0.3 mg into muscle 11/29/2015 Active cetirizine (ZYRTEC ALLERGY) 10 MG gel capsule Take 1 capsule by mouth Active Calcium Carbonate-Vitamin D3 600-400 MG-UNIT Take 1 tablet by mouth once daily Active atorvastatin (LIPITOR) 20 MG tablet Take 20 mg by mouth once daily 12/01/2017 Active amLODIPine (NORVASC) 2.5 MG tablet Take 2.5 mg by mouth once daily 12/01/2017 Active Active Problems Problem Noted Date Diagnosed Date Left foot pain 08/19/2018 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 Smith + GRASS, DUST MITES > cockroach > weeds > mold and maple tree. AKBAR (obstructive sleep apnea) 10/30/2015 History of cervical dysplasia 01/08/2015 Overview (05/17/2018): Overview: annabella 2, leep 1996 Dyslipidemia 02/22/2014 Atrial myxoma 12/13/2012 Family history of ischemic heart disease 013 PAF (paroxysmal atrial fibrillation) 12/13/2012 Essential hypertension 11/25/2012 Palpitation 11/25/2012 Immunizations Name Administration Dates Next Due INFLUENZA VACCINE 04/13/2015 PNEUMOCOCCAL PPSV23 06/15/2001 Social History Tobacco Use Types Packs/Day Years [...] Comments Blood Pressure 118/94 08/15/2010 7:18 AM COLLECTIONS ANALYST Pulse 59 10/28/2018 11:54 AM CDT Temperature 36.9 C (98.5 F) 08/15/2010 7:18 AM COLLECTIONS ANALYST Respiratory Rate 18 08/15/2010 7:18 AM COLLECTIONS ANALYST Oxygen Saturation 98% 10/28/2018 11:54 AM CDT Inhaled Oxygen Concentration 100% 08/08/2010 4 :00 AM COLLECTIONS ANALYST Weight 69.9 kg (154 lb) 10/28/2018 11:54 AM CDT Height 162.6 cm (5' 4 ) 10/28/2018 11:54 AM CDT Body Mass Index 26.43 10/28/2018 11:54 AM CDT Plan of Treatment Health Maintenance Due Date Last Done Comments BONE DENSITY TESTING 1955 COLOGUARD (AGES 45-75) - COLON CA SCREENING 1956 COLON MONITORING 1956 COLONOSCOPY - COLON CA SCREENING 1956 CT COLONOGRAPHY - COLON CA SCREENING 1956 Colorectal Cancer Screening 1956 FIT - COLON CA SCREENING 1956 FLEX SIG - COLON CA SCREENING 1956 MAMMOGRAM 1956 HEPATITIS C SCREENING 07/16/1974 DTAP/TDAP/TD VACCINES (1 - Tdap) 1975 PNEUMOCOCCAL VACCINE 50+ (2 of 2 - PCV) 06/15/2002 06/15/2001 ZOSTER VACCINE (1 of 2) 2006 SCREENING FOR DIABETES 08/19/2018 1, 08/14/2010, 08/14/2010, Additional history exists COVID-19 VACCINE (2023- season) 2024 INFLUENZA VACCINE (#1) 2024 03/15/2018, 2014 DEPRESSION SCREENING 06/15/2024 Respiratory Syncytial Virus (RSV) Vaccine Pt: or over 60 yrs (1 - 1-dose 75+ series) 2031 HEPATITIS B VACCINE Aged Out No longe r eligible based on patient's age to complete this topic HIB VACCINE Aged Out No longer eligi ble based on patient's age to complete this topic HPV VACCINE Aged Out No longer eligi ble based on patient's age to complete this topic MENINGOCOCCAL (Group B) VACCINE Aged Out No longer eligible based on patient's age to complete this topic MENINGOCOCCAL VACCINE Aged Out No michael tomás eligible based on patient's age to complete this topic Procedures Procedure Name Priority Date/Time Associated Diagnosis Comments GLUCOSE - POINT OF CARE Routine 08/15/2010 7:22 AM COLLECTIONS ANALYST from Last 3 Months or Most Recently Relevant to Health Maintenance Results * GLUCOSE - POINT OF CARE (08/15/2010 7:22 AM COLLECTIONS ANALYST) Glucose WB/POC 108 mg/dl [facility] Comment POCT Per Protocol. [facility] BLOOD SPECIMEN / Unknown 08/15/2010 7:22 AM COLLECTIONS ANALYST 08/16/2010 1:03 AM COLLECTIONS ANALYST Mateus Joe MD LAB - POINT OF CARE ORDERABLES [facility] [address] [place] [address] from Last 3 Months or Most Recently Relevant to Health Maintenance Advance Directives * Full Code (Latest Code Status on File) Date Activated Date Inactivated Comments 08/06/2010 1:20 PM 08/15/2010 9:45 PM * Full Code Date Activated Date Inactivated Comments 08/06/2010 10:51 AM 08/06/2010 1:20 PM Care Teams What Job Titles Mean Relationship Specialty Start Date End Date Luca Oliveira DO [address] [place] [address] PCP - General 07/19/10
--- OUTSIDE RECORDS SUMMARY | 2024-08-01 11:49 | XMS_ITS | Referral Summary ---
Author Organization [facility] [employer] Address [address] [place] [address] Care Team Providers Care Patient Access Associate Name Role Phone Luca Oliveira Primary Care Provider Source Comments [facility] [employer],non-owned Affiliates and Associated Physician Practices is amultiple site organization consisting of ambulatory clinics and hospital sitesin [place], [place], [place] and [place]. This disclosure is being madepursuant to the Care Everywhere program and may not contain all information available regarding this patient. Last updated 18.[facility] [employer] Allergies Active Allergy Reactions Criticality Noted Date [...] Comments Blood Pressure 118/94 08/15/2010 7:18 AM KENNEL OPERATOR Pulse 59 10/28/2018 11:54 AM CDT Temperature 36.9 C (98.5 F) 08/15/2010 7:18 AM KENNEL OPERATOR Respiratory Rate 18 08/15/2010 7:18 AM KENNEL OPERATOR Oxygen Saturation 98% 10/28/2018 11:54 AM CDT Inhaled Oxygen Concentration 100% 08/08/2010 4 :00 AM KENNEL OPERATOR Weight 69.9 kg (154 lb) 10/28/2018 11:54 AM CDT Height 162.6 cm (5' 4 ) 10/28/2018 11:54 AM CDT Body Mass Index 26.43 10/28/2018 11:54 AM CDT Plan of Treatment Not on file Procedures Procedure Name Priority Date/Time Associated Diagnosis Comments GLUCOSE - POINT OF CARE Routine 08/15/2010 7:22 AM KENNEL OPERATOR from Last 3 Months or Most Recently Relevant to Health Maintenance Results * GLUCOSE - POINT OF CARE (08/15/2010 7:22 AM KENNEL OPERATOR) Glucose WB/POC 108 mg/dl [facility] Comment POCT Per Protocol. [facility] BLOOD SPECIMEN / Unknown 08/15/2010 7:22 AM KENNEL OPERATOR 08/16/2010 1:03 AM KENNEL OPERATOR Mateus Joe MD LAB - POINT OF CARE ORDERABLES [facility] [address] [place] [address] from Last 3 Months or Most Recently Relevant to Health Maintenance Advance Directives * Full Code (Latest Code Status on File) Date Activated Date Inactivated Comments 08/06/2010 1:20 PM 08/15/2010 9:45 PM * Full Code Date Activated Date Inactivated Comments 08/06/2010 10:51 AM 08/06/2010 1:20 PM Care Teams Patient Access Associate Relationship Specialty Start Date End Date Luca Oliveira DO [address] [place] [address] PCP - General 07/19/10
--- OUTSIDE RECORDS SUMMARY | 2024-08-01 11:49 | XMS_ITS | Encounter Summary ---
Author Organization [employer] [facility] Address 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
--- OUTSIDE RECORDS SUMMARY | 2024-08-01 11:49 | XMS_ITS | Encounter Summary ---
Author Organization [employer] Address [address] [place] [address] Care Team Providers Care Property Insurance Inspector Name Role Phone Luca Mcmillan MD Primary Care Provider + Encounter Details Date Type Department Care Team (Late st Contact Info) Description 07/25/2016 Telephone [facility] [address] [place] [address] Lakhwinder Ryan MD [address] [place] [address] Social History Tobacco Use Types Packs/Day Years Used Date Smoking Tobacco: Former Cigarettes Q uit: 08/06/2010 Smokeless Tobacco: Never Alcohol Use Standard Drinks/Week Comments Yes 0 (1 standard drink = 0.6 oz pur e alcohol) socially Comments No Sex and Gender Information Value Date Recorded Sex Assigned at Not on file Legal Sex Female 4:02 AM MERCERIZER MACHINE OPERATOR Gender Identity Not on file Sexual Orientation Not on file Occupation Industry Job Start Date Job End Date Not on file Not on file Not on file Not on file documented as of this encounter Plan of Treatment Not on file documented as of this encounter Visit Diagnoses Not on filedocumented in this encounter Care Teams Property Insurance Inspector Relationship Specialty Start Date End Date Luca Mcmillan MD PCP - General Family Practice 05/01/15 documented as of this encounter
--- OUTSIDE RECORDS SUMMARY | 2024-08-01 11:49 | XMS_ITS | Encounter Summary ---
Author Organization [employer] Address 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
--- OUTSIDE RECORDS SUMMARY | 2024-08-01 11:49 | XMS_ITS ---
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 Name Role Phone Luca Oliveira DO Primary Care Physician [phone] Iam Blackwood Attending Clinician [phone] Problems Condition Name Condition Details Condition Category Status Onset Date Resolution Date Last Treatment Date Treating Clinician Comments Lipoma of abdominal wall Lipoma of abdominal wall 40826607 Active 01-14 00:00: 00 Left foot pain Left foot pain 77805967 Active 08-19 00:00: 00 Fibromatosi s of plantar fascia Fibromatosi s of plantar fascia 58659768 Active 08-19 00:00: 00 Tobacco use Tobacco use 84011803 Active 11-25 00:00: 00 Gastroesoph ageal reflux disease without esophagitis Gastroesoph ageal reflux disease without esophagitis 65368208 Active 12-18 00:00: 00 History of colon polyps History of colon polyps 50085046 Active 10-07 00:00: 00 Nasal obstruction Nasal obstruction 71712013 Active 06-24 00:00: 00 AKBAR (obstructiv e sleep apnea) AKBAR (obstructiv e sleep apnea) 94292529 Active 10-29 00:00: 00 Dyslipidemi a Dyslipidemi a 96512058 Active 02-22 00:00: 00 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) - 08/06/2010 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) - 08/06/2010 65799493 Active 12-13 00:00: 00 PAF (paroxysmal atrial fibrillatio n) PAF (paroxysmal atrial fibrillatio n) 22961455 Recurre nce 12-13 00:00: 00 Family history of ischemic heart disease Family history of ischemic heart disease 29675964 Active 12-13 00:00: 00 Palpitation Palpitation 04213998 Active 11-25 00:00: 00 Essential hypertensio n Essential hypertensio n 32222879 Active 11-25 00:00: 00 Gastroesoph ageal reflux disease Gastroesoph ageal reflux disease Problem (finding) Active Paroxysmal atrial fibrillatio n Paroxysmal atrial fibrillatio n Problem (finding) Active Family history of ischemic heart disease Family history of ischemic heart disease Problem (finding) Active Perennial allergic rhinitis Perennial allergic rhinitis Problem (finding) Active Essential hypertensio n Essential hypertensio n Problem (finding) Active Obstructive sleep apnea syndrome Obstructive sleep apnea syndrome Problem (finding) Active Tobacco user Tobacco user Problem (finding) Active Nasal obstruction Nasal obstruction Problem (finding) Active Atrial myxoma Atrial myxoma Problem (finding) Active Allergies, Adverse Reactions, Alerts Allergy Name Allergy Type Status Severity Reaction(s) Onset Date Inactive Date Treating Clinician Comments adhesive drug allergy Active Rash 12-21 00:00: 00 SILVER drug allergy Active Rash 12-21 00:00: 00 ANDRIY Inhibitors propensity to adverse reactions to drug Active Cough 12-21 00:00: 00 Andriy Inhibitors Allergy to substance Active Cough 10-29 00:00: 00 Andriy Inhibitors Propensity to adverse reactions to drug Active Cough 10-29 00:00: 00 Silver Allergy to substance Active Rash 11-25 00:00: 00 Silver Propensity to adverse reactions to drug Active Rash 11-25 00:00: 00 Adhesive Sensitivity Propensity to adverse reactions to substance Active Rash 08-02 00:00: 00 Adhesive Propensity to adverse reactions to drug Active Rash 08-02 00:00: 00 Medications Ordered Medication Name Filled Medication Name Start Date Stop Date Current Medication? Ordering Clinician Indication Dosage Frequency Signature (SIG) Comments Components trazodone 50 mg tablet 12-21 00:00: 00 Yes 1{table t} Q1D take 1 tablet by oral route every day at bedtime Flonase Allergy Relief 50 mcg/actuati on nasal spray,suspe nsion 12-21 00:00: 00 Yes 2{spray } Q12H spray 2 spray by intranasal route 2 times every day in each nostril losartan 50 mg tablet 12-21 00:00: 00 Yes 1{table t} Q1D take 1 tablet by oral route every day Xarelto 20 mg tablet 12-21 00:00: 00 Yes 1{table t} Q1D take 1 tablet by oral route every day with the evening meal atorvastati n 20 mg tablet 12-21 00:00: 00 Yes 1{table t} take 1 tablet by oral route every bedtime metoprolol tartrate 25 mg tablet 12-21 00:00: 00 Yes take .5 tablet by mouth 2 times daily Zyrtec 10 mg capsule 12-21 00:00: 00 Yes take 1 capsule by mouth daily breakdown person omega-3 fatty acids-fish oil 300 mg-1,000 mg capsule 12-21 00:00: 00 Yes take 2 capsules by mouth daily omeprazole 20 mg capsule,del ayed release 12-21 00:00: 00 Yes 1{capsu le} Q12H take 1 capsule by oral route 2 times every day 30 minutes to 1 hour before a meal CALCIUM CARBONATE/V ITAMIN D3 (CALCIUM 600 + D,3, ORAL) 2018-06 09:23: 30 Yes [id number] 1{tbl} QD Take 1 Tab by mouth daily. Cetirizine (ZYRTEC) 10 mg Capsule 2018-06 09:23: 30 Yes 1{capsu le} QD Take 1 Capsule by mouth daily breakdown person. ascorbic acid (SUPER C ORAL) 2018-06 09:23: 30 Yes 2{tbl} QD Take 2 Tablets by mouth daily. calcium/mag nesium (CALCIUM AND MAGNESIUM ORAL) 2018-06 09:23: 30 Yes 3{capsu le} QD Take 3 Capsules by mouth daily. CRANBERRY ORAL 2018-06 09:23: 30 Yes 4200mg QD Take 4,200 mg by mouth daily. benzonatate (TESSALON) 200 mg capsule 2018-06 00:00: 00 Yes 200mg Q.[id number] 3D Take 1 Capsule (200 mg) by mouth 3 times daily. losartan (COZAAR) 50 mg tablet losartan (COZAAR) 50 mg tablet 2018-06 00:00: 00 Yes 50mg QD Take 1 Tablet (50 mg) by mouth daily. omeprazole (PriLOSEC) 20 mg Capsule, Delayed Release(E.C .) omeprazole (PriLOSEC) 20 mg Capsule, Delayed Release(E.C .) 2018-0616 00:00: 00 Yes [id number] 40mg QD Take 2 Capsules (40 mg) by mouth daily. flecainide (TAMBOCOR) 50 mg Tablet flecainide (TAMBOCOR) 50 mg Tablet 2018-0607 00:00: 00 Yes 50mg Q.5D Take 1 Tablet (50 mg) by mouth 2 times daily. metoprolol tartrate (LOPRESSOR) 25 mg tablet metoprolol tartrate (LOPRESSOR) 25 mg tablet 02-22 00:00: 00 Yes 12.5mg Q.5D Take 0.5 Tablet (12.5 mg) by mouth 2 times daily. clindamycin phosphate (CLEOCIN T) 1 % Gel clindamycin phosphate (CLEOCIN T) 1 % Gel 01-12 00:00: 00 Yes Q.5D Apply to affected area 2 times daily. amLODIPine (Norvasc) 2.5 mg tablet amLODIPine (Norvasc) 2.5 mg tablet 12-06 00:00: 00 Yes 2.5mg QD Take 1 Tablet (2.5 mg) by mouth daily. atorvastati n (Lipitor) 20 mg tablet atorvastati n (Lipitor) 20 mg tablet 12-06 00:00: 00 Yes 20mg QD Take 1 Tablet (20 mg) by mouth daily. rivaroxaban (Xarelto) 20 mg Tablet rivaroxaban (Xarelto) 20 mg Tablet 11-17 00:00: 00 Yes 20mg QD Take 1 Tablet (20 mg) by mouth daily. multivitami n daily (THERAGRAN) tablet 10-28 11:56: 14 Yes 1{tbl} Take 1 Tab by mouth daily with food. omeprazole (PRILOSEC) 20 MG capsule 10-28 11:56: 14 Yes 20mg QD Take 20 mg by mouth daily before breakfast. cetirizine (ZYRTEC ALLERGY) 10 MG gel capsule 10-28 11:56: 14 Yes 1{capsu le} Take 1 capsule by mouth Calcium Carbonate-V itamin D3 600-400 MG-UNIT 10-28 11:56: 14 Yes 1{tbl} QD Take 1 tablet by mouth once daily EPINEPHrine (EPIPEN 2-VILMA) 0.3 mg/0.3 mL Auto-Inject or EPINEPHrine (EPIPEN 2-VILMA) 0.3 mg/0.3 mL Auto-Inject or 09-22 00:00: 00 Yes .3mg Inject 0.3 mL (0.3 mg) by intramuscu lar injection one time as needed for Anaphylaxi s. rivaroxaban (XARELTO) 20 MG tablet 02-16 00:00: 00 Yes 20mg QD Take 20 mg by mouth once daily losartan (COZAAR) 50 MG tablet 02-16 00:00: 00 Yes 50mg QD Take 50 mg by mouth once daily atorvastati n (LIPITOR) 20 MG tablet 12-01 00:00: 00 Yes 20mg QD Take 20 mg by mouth once daily amLODIPine (NORVASC) 2.5 MG tablet 12-01 00:00: 00 Yes 2.5mg QD Take 2.5 mg by mouth once daily EPINEPHrine (EPIPEN) 0.3 MG/0.3ML auto-inject or pen 11-28 00:00: 00 Yes .3mg Inject 0.3 mg into muscle metoprolol tartrate IR (LOPRESSOR) 25 MG tablet 08-14 00:00: 00 Yes 25mg Q.5D Take 1 Tab by mouth 2 times daily. Procedures Procedure Date / Time Performed Performing Clinicia n Device MAMMO 3D ALISSON SCREEN BILAT W OR WO CAD 2018-12-22 15:00:12 Rosario Rios GLUCOSE - POINT OF CARE 2010-08-15 07:22:00 Victor Hugo Joe chi ENDOSCOPY, COLON, SCREENING 2009-03-09 00:00:00 Provid er, Abstract Encounters Start Date/Time End Date/Time Encounter Type Admission Type Attending Clinicians Care Facility Care Department Encounter ID 2019-12-22 12:03:00 2019-12-22 12:03:[id number] 2019-12-22 12:03:00 2019-12-22 12:03:00 [facility] Allergy [id number] Family History Family Member Diagnosis Comments Start Date Stop Date Natural father Heart Disease Natural father Hypertension Natural father Stroke Natural father Cancer Natural father Diabetes Maternal aunt Breast Cancer Maternal aunt Colon Cancer Natural mother Clotting Disorder Natural mother Diabetes Natural mother Heart Disease Natural mother High Cholesterol Natural mother Hypertension Natural mother Kidney Disease Natural mother Other Natural mother Thyroid Disease Paternal aunt Colon Cancer Natural sister Ovarian Cancer Natural sister Healthy Natural brother Healthy Social History Social Habit Start Date Stop Date Comments History of tobacco use ASSERTION Gender identity Sexual orientation History of Occupation Alcoholic beverage intake 2019-08-15 00:00:00 00:00:00 History of Social function 2019-02-23 00:00:00 2019-02 00:00:00 Tobacco use and exposure 2018-05-09 00:00:00 2018-04-16 5 00:00:00 Alcohol Comment 2018-05-09 00:00:00 2018-05-09 00:00:0 0 Sex 2012-05-04 04:02:12 2012-05-04 04:02:12 Cigarettes smoked current (p ack per day) - Reported 2010-07-19 00:00:00 2010-07-19 00:00:00 Cigarette pack-years 2010-07-19 00:00:00 2010-07-19 00 :00:00 Sex assigned at 1955 00:00:00 1955 0 0:00:00 Smoking Status Start Date Stop Date Light tobacco smoker 2018-05-09 00:00:00 2018-04 00:00:00 Smokes tobacco daily 2010-07-19 00:00:00 2010-07 00:00:00 Immunizations Ordered Immunization Name Filled Immunization Name Date Status Comments Refusal Reason (HAVRIX/VAQTA)(19 YRS UP) HEPATITIS A VACCINE ADULT DOSAGE 1 ML IMM 2019-02-04 00:00:00 Completed (ADACEL/BOOSTRIX)(10 YR UP) TDAP VACCINE, 0.5ML, IM 2018-08-26 00:00:00 Completed Influenza Seasonal Unspecified Formulation IM 2018-03-15 00:00:00 Completed Influenza Seasonal Unspecified Formulation IM 2015-04-13 00:00:00 Completed INFLUENZA VACCINE 2015-04-13 00:00:00 Completed PNEUMOCOCCAL PPSV23 2001-06-15 00:00:00 Completed Plan of Treatment Planned Activity Planned Date Details Comments Future Scheduled Test 2031 00:00:00 RSV VA CCINE (60+ or ) (1 - 1-dose 75+ series) [code = RSV VACCINE (60+ or ) (1 - 1-dose 75+ series)] Future Scheduled Test 2028-08-26 00:00:00 DTAP/T DAP/TD VACCINES (2 - Td or Tdap) [code = DTAP/TDAP/TD VACCINES (2 - Td or Tdap)] Future Scheduled Test 2024-06-22 20:32:44 DEPRES AUBREE SCREENING [code = DEPRESSION SCREENING] Future Scheduled Test 2024-05-10 18:16:43 BONE D ENSITY TESTING [code = BONE DENSITY TESTING] Future Scheduled Test 2024-05-10 18:16:43 Screen ing for malignant neoplasm of colon (procedure) [code = 297465697] Future Scheduled Test 2024-05-10 18:16:43 Screen ing for malignant neoplasm of colon (procedure) [code = 278103281] Future Scheduled Test 2024-05-10 18:16:43 Screen ing for malignant neoplasm of colon (procedure) [code = 457070674] Future Scheduled Test 2024-05-10 18:16:43 Screen ing for malignant neoplasm of colon (procedure) [code = 168386770] Future Scheduled Test 2024-05-10 18:16:43 Screen ing for malignant neoplasm of colon (procedure) [code = 458188980] Future Scheduled Test 2024-05-10 18:16:43 Screen ing for malignant neoplasm of colon (procedure) [code = 564244927] Future Scheduled Test 2024-05-10 18:16:43 Screen ing for malignant neoplasm of colon (procedure) [code = 129186824] Future Scheduled Test 2024-05-10 18:16:43 MAMMOGRAM [c ode = MAMMOGRAM] Future Scheduled Test 2024-05-10 18:16:43 HEPATI TIS C SCREENING [code = HEPATITIS C SCREENING] Future Scheduled Test 2024-05-10 18:16:43 Admini stration of third dose of vaccine product containing only acellular Bordetella pertussis and Clostridium tetani and Corynebacterium diphtheriae antigens (procedure) [code = 612850617] Future Scheduled Test 2024-05-10 18:16:43 PNEUMO COCCAL VACCINE 50+ (2 of 2 - PCV) [code = PNEUMOCOCCAL VACCINE 50+ (2 of 2 - PCV)] Future Scheduled Test 2024-05-10 18:16:43 ZOSTER VACCINE (1 of 2) [code = ZOSTER VACCINE (1 of 2)] Future Scheduled Test 2024-05-10 18:16:43 SCREEN ING FOR DIABETES [code = SCREENING FOR DIABETES] Future Scheduled Test 2024-05-10 18:16:43 COVID- 19 VACCINE ( season) [code = COVID-19 VACCINE ( season)] Future Scheduled Test 2024-05-10 18:16:43 Admini stration of vaccine product containing only Influenza virus antigen (procedure) [code = 94185792] Future Scheduled Test 2024-05-10 18:16:43 Respir atory Syncytial Virus (RSV) Vaccine Pt: or over 60 yrs (1 - 1-dose 75+ series) [code = Respiratory Syncytial Virus (RSV) Vaccine Pt: or over 60 yrs (1 - 1-dose 75+ series)] Diagnostic Test Pending 2024-01-14 00:00:00 INFL UENZA VACCINE (#1) [code = INFLUENZA VACCINE (#1)] Diagnostic Test Pending 2021-09-26 00:00:00 Grubbs noscopy (procedure) [code = 75226736] Diagnostic Test Pending 2021-09-26 00:00:00 Scre ening for malignant neoplasm of colon (procedure) [code = 928508478] Diagnostic Test Pending 2021 00:00:00 Scre ening for osteoporosis (procedure) [code = 834785300] Diagnostic Test Pending 2019-12-23 00:00:00 Scre ening for malignant neoplasm of breast (procedure) [code = 590841369] Diagnostic Test Pending 2006 00:00:00 ZOST ER VACCINE (1 of 2) [code = ZOSTER VACCINE (1 of 2)] Diagnostic Test Pending 2001 00:00:00 Scre ening for malignant neoplasm of colon (procedure) [code = 241334219] Diagnostic Test Pending 2001 00:00:00 Scre ening for malignant neoplasm of colon (procedure) [code = 841133689] Diagnostic Test Pending 2001 00:00:00 Scre ening for malignant neoplasm of colon (procedure) [code = 309553427] Diagnostic Test Pending 1975 00:00:00 Admi nistration of vaccine product containing only Streptococcus pneumoniae antigen (procedure) [code = 88737002] Vital Signs Vital Name Observation Time Observation Value Commen ts Systolic blood pressure 2019-08-15 10:25:00 132 mm[Hg] Diastolic blood pressure 2019-08-15 10:25:00 80 mm[Hg] Heart rate 2019-04-24 09:23:00 62 /min Body temperature 2019-04-24 09:23:00 36.83 Brigette Respiratory rate 2019-04-24 09:23:00 16 /min Body height 2019-04-24 09:23:00 163.8 cm Body weight 2019-04-24 09:23:00 73.936 kg BMI 2019-04-24 09:23:00 27.55 kg/m2 Oxygen saturation in Arteria l blood by Pulse oximetry 2019-04-24 09:23:00 97 % Heart rate 2018-10-28 11:54:00 59 /min Body height 2018-10-28 11:54:00 162.6 cm Body weight 2018-10-28 11:54:00 69.854 kg BMI 2018-10-28 11:54:00 26.43 kg/m2 Oxygen saturation in Arteria l blood by Pulse oximetry 2018-10-28 11:54:00 98 % Systolic blood pressure 2010-08-15 07:18:00 118 mm[Hg] Diastolic blood pressure 2010-08-15 07:18:00 94 mm[Hg] Body temperature 2010-08-15 07:18:00 36.94 Brigette Respiratory rate 2010-08-15 07:18:00 18 /min Hospital Discharge Instructions * DateInstructionAdditional InformationNo Information
--- OUTSIDE RECORDS SUMMARY | 2024-08-01 11:49 | XMS_ITS | Encounter Summary ---
Author Organization [facility] Address 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
--- OUTSIDE RECORDS SUMMARY | 2024-08-01 11:49 | XMS_ITS | Clinical Summary ---
Author Organization [facility] Address [address] [place] [address] Care Team Providers Care Variety Performer Name Role Phone Luca Mcmillan MD Primary Care Provider + Allergies Active Allergy Reactions Criticality Noted Date Comments Andriy Inhibitors Cough Low 10/30/2015 Adhesive Rash Low 08/02/2010 Silver Rash Low 11/25/2012 Medications CALCIUM CARBONATE/VITAM IN D3 (CALCIUM 600 + D,3, ORAL)Indication s:Atrial myxoma,Unspecif ied essential hypertension,Pa lpitation Take 1 Tab by mouth daily. Active Cetirizine (ZYRTEC) 10 mg Capsule Take 1 Capsule by mouth daily music researcher. Active ascorbic acid (SUPER C ORAL) Take 2 Tablets by mouth daily. Active calcium/magnesi um (CALCIUM AND MAGNESIUM ORAL) Take 3 Capsules by mouth daily. Active EPINEPHrine (EPIPEN 2-VILMA) 0.3 mg/0.3 mL Auto-Injector Inject 0.3 mL (0.3 mg) by intramuscular injection one time as needed for Anaphylaxis. 2 Pen 1 10/04/2018 9:47 AM CDT 9 Active CRANBERRY ORAL Take 4,200 mg by mouth daily. Active rivaroxaban (Xarelto) 20 mg Tablet Take 1 Tablet (20 mg) by mouth daily. 30 Tablet 6 06/20/2019 4:09 PM TECHNICAL ANALYST 9 Active amLODIPine (Norvasc) 2.5 mg tablet Take 1 Tablet (2.5 mg) by mouth daily. 30 Tablet 11 06/20/2019 4:09 PM TECHNICAL ANALYST 9 Active atorvastatin (Lipitor) 20 mg tablet Take 1 Tablet (20 mg) by mouth daily. 30 Tablet 11 06/20/2019 4:09 PM TECHNICAL ANALYST 9 Active clindamycin phosphate (CLEOCIN T) 1 % Gel Apply to affected area 2 times daily. 60 Gram 1 01/13/2019 1:05 PM CDT 9 Active metoprolol tartrate (LOPRESSOR) 25 mg tablet Take 0.5 Tablet (12.5 mg) by mouth 2 times daily. 30 Tablet 2 03/30/2019 4:26 PM CDT 9 Active flecainide (TAMBOCOR) 50 mg Tablet Take 1 Tablet (50 mg) by mouth 2 times daily. 60 Tablet 6 05/02/2019 9:49 AM TECHNICAL ANALYST 9 Active losartan (COZAAR) 50 mg tablet Take 1 Tablet (50 mg) by mouth daily. 30 Tablet 11 06/20/2019 4:09 PM TECHNICAL ANALYST 9 Active omeprazole (PriLOSEC) 20 mg Capsule, Delayed Release(E.C.)In dications:Gastr oesophageal reflux disease, esophagitis presence not specified Take 2 Capsules (40 mg) by mouth daily. 180 Capsule 3 06/20/2019 4:09 PM TECHNICAL ANALYST 9 Active benzonatate (TESSALON) 200 mg capsule Take 1 Capsule (200 mg) by mouth 3 times daily. 40 Capsule 9 Active Active Problems Patient Care Coordination No te Formatting of this note migh t be different from the original. 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 Smith + GRASS, DUST MITES > cockroach > weeds > mold and maple tree. 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) - 08/06/2010 12/13/2012 PAF (paroxysmal atrial fibrillation) 12/13/2012 Family history of ischemic heart disease 013 Palpitation 11/25/2012 Essential hypertension 11/25/2012 Resolved Problems Problem Noted Date Diagnosed Date Resolved Date Nasal turbinate hypertrophy 06/24/2016 07/28/2016 Past use of tobacco 12/13/2012 11/26/19 18 Immunizations Immunization Administration Dates Next Due (ADACEL/BOOSTRIX)(10 YR UP) TDAP VACCINE, 0.5ML, IM 08/26/2018 (HAVRIX/VAQTA)(19 YRS UP) HE PATITIS A VACCINE ADULT DOSAGE 1 ML IMM 02/04/2019 Influenza Seasonal Unspecified Formulation IM ,04/13/2015 Family History Medical History Relation Name Comments Healthy Brother Cancer Father Lymphoma/Hodgki n's Diabetes Father Heart Disease Father Hypertension Father Stroke Father Breast Cancer Maternal Aunt double mastec gonzalez Colon Cancer Maternal Aunt Clotting Disorder Mother Diabetes Mother Heart Disease Mother High Cholesterol Mother Hypertension Mother Kidney Disease Mother Other Mother CAD Thyroid Disease Mother Colon Cancer Paternal Aunt Ovarian Cancer Sister 1 dani uncertain dx, dx by abnormal pap and surgery was vaginal, unknown if genetic testing done Healthy Sister 2 Relation Name Status Comments Brother Alive Father Maternal Aunt Alive Mother Paternal Aunt Alive Sister 1 dani Alive Sister 2 Alive Social History Tobacco Use Types Packs/Day Years Used Date Smoking Tobacco: Light Smoker Cigarettes Smokeless Tobacco: Never Tobacco Cessation:Ready to Q uit: No; Counseling Given: Yes Alcohol Use Standard Drinks/Week Comments Yes 0 (1 standard drink = 0.6 oz pur e alcohol) socially Comments No Sex and Gender Information Value Date Recorded Sex Assigned at Not on file Legal Sex Female 4:02 AM TECHNICAL ANALYST Gender Identity Not on file Sexual Orientation Not on file 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 Not on file Not on file N ot on file Last Filed Vital Signs Vital Sign Reading Time Taken Comments Blood Pressure 132/80 08/15/2019 10:25 AM TECHNICAL ANALYST Pulse 62 04/24/2019 9:23 AM TECHNICAL ANALYST Temperature 36.8 C (98.3 F) 04/24/2019 9:23 AM TECHNICAL ANALYST Respiratory Rate 16 04/24/2019 9:23 AM TECHNICAL ANALYST Oxygen Saturation 97% 04/24/2019 9:23 AM TECHNICAL ANALYST Inhaled Oxygen Concentration - - Weight 73.9 kg (163 lb) 04/24/2019 9:23 AM TECHNICAL ANALYST Height 163.8 cm (5' 4.5 ) 04/24/2019 9:23 AM TECHNICAL ANALYST Body Mass Index 27.55 04/24/2019 9:23 AM TECHNICAL ANALYST Plan of Treatment Health Maintenance Due Date Last Done Comments PNEUMOCOCCAL VACCINE 65+ YEA RS (1 of 2 - PCV) 1975 FIT-DNA Q 3 years 2001 FIT/FOBT Q 1 year 2001 Flex Sig/CT Colonography Q 5 years 2001 ZOSTER VACCINE (1 of 2) 2006 BREAST CANCER SCREENING 12/23/2019 12/23/19 19, 11/25/2017, 04/03/2016, Additional history exists OSTEOPOROSIS SCREENING 2021 COLORECTAL SCREENING 09/26/2021 09/26/2016, 03/09/2009, 03/09/2008, Additional history exists Colorectal Cancer Screening 09/26/2021 INFLUENZA VACCINE (#1) 2024 03/15/2018, 2014 DTAP/TDAP/TD VACCINES (2 - T d or Tdap) 08/26/2028 08/26/2018 RSV VACCINE (60+ or ) (1 - 1-dose 75+ series) 2031 Procedures Procedure Name Priority Date/Time Associated Diagnosis Comments MAMMO 3D ALISSON SCREEN BILAT W OR WO CAD Routine 12/22/2018 3:00 PM CDT Breast cancer screening ENDOSCOPY, COLON, SCREENING Routine 03/09/2009 from Last 3 Months or Most Recently Relevant to Health Maintenance Results * MAMMO SCRN BILAT 3D ALISSON W OR WO CAD (12/22/2018 3:00 PM CDT) Anatomical Region Laterality Modality Breast Bilateral Mammography 12/22/2018 3:00 PM CDT Narrative 12/22/2018 4:54 PM CDT BILATERAL DIGITAL SCREENING MAMMOGRAM WITH 3D TOMOSYNTHESIS AND CAD DATE: 12/22/2018 3:00 PM INDICATION: Routine screening. TECHNIQUE: Low-dose, full-field digital breast tomosynthesis examination was performed with 2D and 3D acquisitions. COMPARISON: 11/25/2017 through 03/01/2012. BREAST COMPOSITION: The breasts are heterogeneously dense, which may obscure small masses. FINDINGS: No suspicious masses, abnormal clustered calcifications, parenchymal asymmetry or areas of architectural distortion are identified in either breast. There has been no significant change, compared to the prior exams. CAD was utilized. OVERALL FINAL ASSESSMENT: BI-RADS CATEGORY 1 - Negative RECOMMENDATIONS: Routine annual mammography. DICTATION LOCATION: [facility] Procedure Note Briana Fiore MD - 12/22/2018 BILATERAL DIGITAL SCREENING MAMMOGRAM WITH 3D TOMOSYNTHESIS AND CAD DATE: 12/22/2018 3:00 PM INDICATION: Routine screening. TECHNIQUE: Low-dose, full-field digital breast tomosynthesis examination was performed with 2D and 3D acquisitions. COMPARISON: 11/25/2017 through 03/01/2012. BREAST COMPOSITION: The breasts are heterogeneously dense, which may obscure small masses. FINDINGS: No suspicious masses, abnormal clustered calcifications, parenchymal asymmetry or areas of architectural distortion are identified in either breast. There has been no significant change, compared to the prior exams. CAD was utilized. OVERALL FINAL ASSESSMENT: BI-RADS CATEGORY 1 - Negative RECOMMENDATIONS: Routine annual mammography. DICTATION LOCATION: [facility] Rosario Rios MD MAMMO ORDERABLES Final Res ult * ENDOSCOPY, COLON, SCREENING (03/09/2009) Abstract Provider GI PROCEDURE ORDERABLES Final Result [facility] from Last 3 Months or Most Recently Relevant to Health Maintenance Insurance [facility] BLUE ACCESS CHOICE RX [facility] Commercial RX [employer] Commercial Advance Directives For more information, please contact: [phone] * Full Code (Latest Code Status on File) Date Activated Date Inactivated Comments 01/25/2019 1:52 PM 01/25/2019 7:11 PM * Full Code Date Activated Date Inactivated Comments 01/25/2019 1:17 PM 01/25/2019 1:52 PM * Full Code Date Activated Date Inactivated Comments 09/26/2016 7:38 AM 09/26/2016 11:59 AM * Full Code Date Activated Date Inactivated Comments 06/24/2016 3:28 PM 06/24/2016 7:06 PM * Full Code Date Activated Date Inactivated Comments 06/24/2016 12:50 PM 06/24/2016 3:28 PM Care Teams Variety Performer Relationship Specialty Start Date End Date Luca Mcmillan MD PCP - General Family Practice 05/01/15
--- NOTE | 2024-08-01 12:15 | ECG_ITS ---
Test Date: 2024-08-01 12:21:04 Measurements Intervals [place] Rate: 107 P: 0 NV: 0 QRS: 56 QRSD: 89 T: 241 QT: 354 QTc: 474 Interpretive Statements ATRIAL FIBRILLATION WITH RAPID VENTRICULAR RESPONSE POSSIBLE RIGHT VENTRICULAR CONDUCTION DELAY ST-T WAVE ABNORMALITY IN ANTEROLATERAL LEADS- CONSIDER ISCHEMIA BASELINE ARTIFACT- I, II, III, AVR, AVL, AVF ABNORMAL ECG Compared to ECG 08/01/2024 09:11:36 HEART RATE HAS DECREASED POSSIBLE ISCHEMIA NOW PRESENT Electronically Signed On 08-01-2024 12:42:03 CYLINDER TESTER by Ruddy Ponce D.O.
[2024-08-01] MEDS: METOPROLOL TARTRATE INJ 5 MG/5 ML VIAL IV PUSH (12:39)
[2024-08-01 12:46] LABS: Troponin I < 0.012 ng/mL (0.000-0.034)
--- NOTE | 2024-08-01 13:29 | PC.NURSE ---
Pt given po fluids denies any nausea at this time.
[2024-08-01] MEDS: METOPROLOL TARTRATE 12.5 MG TABLET PO (13:30)
== END 2024-08-01 13:57 | disposition home or self-care (01) ==
PROVIDERS: Emergency Provider Physician Assistant
DX: I48.91 Unspecified atrial fibrillation (principal); R11.2 Nausea with vomiting, unspecified; T45.516A Underdosing of anticoagulants, initial encounter; T44.7X6A Underdosing of beta-adrenoreceptor antagonists, initial encounter; Z91.128 Patient's intentional underdosing of medication regimen for other reason; Z20.822 Contact with and (suspected) exposure to COVID-19; I10 Essential (primary) hypertension; E78.5 Hyperlipidemia, unspecified; E04.2 Nontoxic multinodular goiter; R91.8 Other nonspecific abnormal finding of lung field; R94.31 Abnormal electrocardiogram [ECG] [EKG]
CPT/HCPCS: 36415; 71046; 71260; 74177; 80053; 81001; 83605; 83690; 83735; 83880; 84484; 85025; 85610; 85730; 87637; 93005; 96361; 96374; 99284; A9270; J7030; J7040; Q9967